=== PATIENT | female | born 1945 | race Caucasian/White ===

== ENCOUNTER 2016-07-30 06:09 | Inpatient (IN) | payer OTHER ==
[2016-07-20 13:58] LABS: EOSINOPHILS 0.9 %; EOSINOPHILS ABSOLUTE 0.09 10/3/uL (0.0-0.53); HEMATOCRIT 38.1 % (36.0-48.0); HEMOGLOBIN 12.3 g/dL (12.0-16.0); IMMATURE GRANULOCYTES 0.4 %; IMMATURE GRANULOCYTES ABSOLUTE 0.04 10/3/uL (0.0-0.11); LYMPHOCYTES 10.6 %; LYMPHOCYTES ABSOLUTE 1.03 10/3/uL (0.67-4.30); MANUAL DIFF NO %; MEAN CORPUS HGB CONC 32.3 g/dL (32.0-36.0); MEAN CORPUSCULAR HEMOGLOB 25.8 pg (26.0-34.0); MEAN CORPUSCULAR VOLUME 79.9 fL (80-100); MEAN PLATELET VOLUME 8.6 fL (9.2-13.0); MONOCYTES 4.2 %; MONOCYTES ABSOLUTE 0.41 10/3/uL (0.21-1.20); NEUTROPHILS 82.9 %; NEUTROPHILS ABSOLUTE 8.07 10/3/uL (2.02-8.40); PLATELET COUNT 384 10/3/uL (150-400); RBC DISTRIBUTION WIDTH 16.1 % (12.0-16.0); RED CELL COUNT 4.77 10/6/uL (4.0-5.6); WHITE BLOOD CELLS 9.7 10/3/uL (4.5-10.5)
[2016-07-20 14:11] LABS: % IRON SAT 10 % (20-50); ALBUMIN 3.4 G/DL (3.5-5.0); CALCIUM, SERUM 8.8 MG/DL (8.5-10.4); CHLORIDE, SERUM 107 MMOL/L (96-112); CO2 (CARBON DIOXIDE) 22 MMOL/L (24-34); CREATININE 2.26 MG/DL (0.55-1.02); GFR AFRICAN AMERICAN 24 ML/MIN (>=60); GFR NON AFRICAN AMERICAN 21 ML/MIN (>=60); IRON BINDING CAPACITY 419 MCG/DL (225-410); IRON, SERUM 41 MCG/DL (35-150); POTASSIUM, SERUM 4.9 MMOL/L (3.5-5.3); SGOT(AST) 17 U/L (5-40); SGPT(ALT) 38 U/L (5-65); SODIUM, SERUM 142 MMOL/L (135-148); TOTAL BILIRUBIN 0.2 MG/DL (0-1.2); TOTAL PROTEIN 7.2 G/DL (6.0-8.5)
[2016-07-20 14:12] LABS: A/G RATIO 0.9 (0.7-1.9); ALKALINE PHOSPHATASE 96 U/L (45-117); BUN (BLOOD UREA NITROGEN) 37 MG/DL (6-23); GLOBULIN 3.8 G/DL (2.5-4.1); GLUCOSE, SERUM 167 MG/DL (60-99)
[2016-07-20 14:34] LABS: ASCORBIC ACID (UR NOT ORDER) NEG (NEG); BILIRUBIN, URINE NEGATIVE (NEG); KETONE, URINE NEGATIVE (NEG); LEUKOCYTE ESTERASE(NOT OR SMALL (NEG); WBC (NOT ORDERED) (RFLEX) 105 (0-5)
--- NOTE | ~2016-07-30 | OP ---
[facility] [place] [address] [place]. [address] NAME: BASILIA BAÑUELOS : 45 STATUS : ADM IN PAT#: [id number] AGE: 71 ADM/REG DATE : 07/30/16 MR#: [id number] REPORT SERV DATE: 07/30/16 DICTATED BY: ROLANDO CARDOSO DATE: 07/30/16 REPORT STATUS : Draft TRANSCRIBED BY: MODL DATE: 07/30/16 DATE OF PROCEDURE: 07/30/2016 ATTENDING PHYSICIAN: Rolando Cardoso MD MANAGER PRODUCE: Chano Chatman. ANESTHESIOLOGIST: Ronnie Roberson M.D. PREOPERATIVE DIAGNOSES: 1. Unstable angina. 2. Three-vessel coronary artery disease. 3. Chronic kidney disease, stage 4. 4. Insulin-dependent diabetes mellitus. 5. Hypertension. 6. Hyperlipidemia. POSTOPERATIVE DIAGNOSES: 1. Unstable angina. 2. Three-vessel coronary artery disease. 3. Chronic kidney disease, stage 4. 4. Insulin-dependent diabetes mellitus. 5. Hypertension. 6. Hyperlipidemia. PROCEDURE PERFORMED: 1. Median sternotomy. 2. Extracorporeal circulation. 3. Coronary artery bypass grafting x3, left internal mammary artery, left anterior descending, reverse greater saphenous vein graft to posterior descending artery, reverse greater saphenous vein graft to obtuse marginal #2. 4. PORSHA. 5. Endoscopic vein harvest of left leg. 6. Vas-Cath placement in the left subclavian vein. COMPLICATIONS: None. ESTIMATED BLOOD LOSS: 500 mL. TUBES AND DRAINS: A 24-Gibraltarian Jeevan in the left pleural space and 32-Gibraltarian straight mediastinal chest tube. Atrial and ventricular wires were placed. DETAILS OF CARDIOPULMONARY BYPASS: Cross-clamp 64 minutes, total cardiopulmonary bypass time 94 minutes. POSTOPERATIVE CONDITION: To CV ICU, weaned on 5 mcg/kilo/minute of dobutamine. [facility] [place] [address] [place]. [address] NAME: BASILIA BAÑUELOS : 45 STATUS : ADM IN PAT#: [id number] AGE: 71 ADM/REG DATE : 07/30/16 MR#: [id number] REPORT SERV DATE: 07/30/16 DICTATED BY: ROLANDO CARDOSO DATE: 07/30/16 REPORT STATUS : Draft TRANSCRIBED BY: MODL DATE: 07/30/16 INTRAOPERATIVE FINDINGS: Diffusely diseased coronary arteries. She is not a redo candidate, could not clear all the distal disease. The vein was 4-5 mm slightly thick. Excellent Doppler signals in all 3 grafts pre and post protamine. She had a short sternum, but however was able to have this reach a suitable place on the left anterior descending. Transesophageal echo showed EF of 40-45% with inferior wall hypokinesis. There was mild MR postoperatively. There was preserved wall motion with no change in her mild MR. DETAILS OF CARDIOPULMONARY BYPASS GRAFTIN. Grafts #1, left internal mammary artery, left anterior descending was 1.7 mm artery. 2. Reverse greater saphenous vein graft to obtuse marginal #2. This was 1.5 mm artery. 3. Reverse greater saphenous vein graft to posterior descending artery. Again, this was 1.5 mm artery. INDICATIONS FOR PROCEDURE: Ms. Bañuelos is a 71-year-old female with a history of long-standing poorly controlled diabetes mellitus, who was referred after being found to have three-vessel coronary artery disease on her heart catheterization. She was sent for evaluation by Nephrology and was also sent for better blood sugar management. Ultimately, she returns for an operation. Risks, benefits, and alternatives were discussed with the patient including but not limited to, bleeding, infection, stroke, , heart attack, need for future operations, all questions were answered. The STS score was calculated risk less than 5% and total morbidity mortality less than 30% were discussed with her. All questions were answered. DETAILS OF PROCEDURE: The patient was brought to the operating room, placed supine on the operating table. After satisfactory induction of general endotracheal anesthesia, she was prepped and draped in usual sterile fashion. Working simultaneously, endoscopic vein harvest was performed from the left leg and median sternotomy was performed on the chest. Skin and subcutaneous tissues were divided. Clavipectoral fascia was divided. Sternum was divided in the midline. Rultract retractor was placed. The internal mammary artery was harvested in a pedicle fashion from its takeoff under the subclavian vein to the bifurcation of the diaphragm. Systemic heparinization was achieved. After 3 minutes, the pedicle was clipped and divided of the bifurcation, it was infiltrated with papaverine. Hemostasis was obtained along the chest wall. A 24-Gibraltarian Jeevan was placed in the left pleural space and exteriorized. Rultract retractor was removed. Sternal retractor was placed. Thymic tissue was divided in the midline up to the innominate vein. Pericardium was opened in the midline along the diaphragms. Pericardial well was created. There were significant calcifications at the base of the innominate artery, so a more suitable slightly more proximal cannulation site was chosen. The aorta was cannulated through dual pursestring with a soft-flow cannula. The right atrial appendage was cannulated through a pursestring for a dual stage venous cannula. Antegrade root vent cardioplegia tack was placed. The conduit was brought up and reversed and prepared for bypass. The internal mammary artery was brought down through a wide V in the pericardium. Cardiopulmonary bypass was then initiated after documentation of an adequate ACT. The targets were inspected, were felt to be as mentioned in the findings. Cross-clamp was brought up. Heart was arrested with cold antegrade cardioplegia for a total of 800 mL, switching to intermittent aliquots of cardioplegia every 15 minutes throughout the remainder of the every 20 minutes throughout the remainder of the Record Of Operation [address] [address] NAME: BASILIA BAÑUELOS : 45 STATUS : ADM IN PAT#: [id number] AGE: 71 ADM/REG DATE : 07/30/16 MR#: [id number] REPORT SERV DATE: 07/30/16 DICTATED BY: ROLANDO CARDOSO DATE: 07/30/16 REPORT STATUS : Draft TRANSCRIBED BY: FIDE DATE: 07/30/16 cross clamp. The grafts were then performed as mentioned in the findings, the reverse greater saphenous vein graft to the PDA, reverse greater saphenous vein graft to the obtuse marginal #2. Both of these were done with 8-0 Surgipro. The heart was filled. The veins were cut to length and the proximal aortotomy was performed, enlarged with a 4.5 mm punch and a running continuous anastomosis was performed using 6-0 Prolene. Vein markers were placed. The internal mammary artery was brought down through a wide V in the pericardium and anastomosed to the suitable soft spot on the LAD. This was done using 8-0 Surgipro. There was excellent Doppler flow in the graft and then in the t[place] river artery proximal and distal to the anastomosis. The pedicle was attached to the heart in two places using 6-0 Prolene. The vein grafts were de-aired and the cross-clamp was removed. Atrial and ventricular pacing wires were placed. A 5 mcg/kilo/minute of dobutamine was started and the patient was able to be weaned from cardiopulmonary bypass without incident. The protamine was administered. Given the patient's chronic kidney disease, platelets and FFP were administered as well, as she appeared to be coagulopathic. The patient was decannulated. All cannulation sites were oversewn with 4-0 Prolene. A 32-Gibraltarian chest tube was brought in under the sternum, was not able to close the pericardium over the heart. Hemostasis was obtained. The sternum was then reapproximated with stainless steel sternal wires, some of these were double wires. Clavipectoral fascia was reapproximated using running #1 StrataFix. Subcutaneous tissues closed using running #1 StrataFix. Skin and soft tissues were closed using 2-0 Quill. Prevena dressing was placed. Attention was then turned to the left subclavian area without removing the drapes. The left subclavian vein was accessed using a 14-gauge needle. There was good return of venous flow. Guidewire was placed through this. Needle was removed and the tract was dilated sequentially and then a 14- Gibraltarian Vas-Cath was placed through this. Vas-Cath was anchored into position, was flushed and then dressed. The patient was transferred to the CV ICU in critical and stable condition. WMC/MODL Rolando Cardoso MD / [id number] CC: MD Damien Mark M.D. Steven Stubblefield, M.D., F.A.C.C.
--- NOTE | ~2016-07-30 | OP ---
Record Of Operation [facility] Sarah Cueto [place] [address]. [address] NAME: BASILIA BAÑUELOS : 45 STATUS : ADM IN PAT#: [id number] AGE: 71 ADM/REG DATE : 07/30/16 MR#: [id number] REPORT SERV DATE: 08/14/16 DICTATED BY: DAMEON MARTINEZ DATE: 08/13/16 REPORT STATUS : Draft TRANSCRIBED BY: FIDE DATE: 08/13/16 DATE OF PROCEDURE: NO DICTATION DRAFTER CONSTRUCTION/FIDE Dameon Martinez M.D. / [id number]
--- NOTE | ~2016-07-30 | OP ---
Record Of Operation [facility] [address] [place]. [address] NAME: BASILIA BAÑUELOS : 45 STATUS : ADM IN [facility]#: [id number] AGE: 71 ADM/REG DATE : 07/30/16 MR#: [id number] REPORT SERV DATE: 08/14/16 DICTATED BY: DAMEON MARTINEZ DATE: 08/13/16 REPORT STATUS : Draft TRANSCRIBED BY: FIDE DATE: 08/13/16 DATE OF PROCEDURE: 08/13/2016 PREOPERATIVE DIAGNOSIS: Acute kidney injury. POSTOPERATIVE DIAGNOSIS: Acute kidney injury. PROCEDURE: Right IJ PermCath. SURGEON: Dameon Martinez M.D. PRIVATE BRANCH EXCHANGE OPERATOR: None. ANESTHESIA: MAC plus local. INDICATIONS: The patient is a 71-year-old female, who had coronary bypass performed by Dr. Singletary. She developed acute kidney injury and has been dialyzed via a left subclavian vein and Vas-Cath. She needs intermediate term dialysis access. She was consented for PermCath placement. DESCRIPTION OF PROCEDURE: After informed consent was obtained, the patient was taken to the operating room and placed in the supine position on the operating table. Monitored anesthesia was administered. The patient's right neck and chest were prepped and draped in the usual sterile fashion. Ultrasound-guided access was obtained of the right internal jugular vein. The ultrasound image was documented on the chart. I passed a wire centrally. I anesthetized the right chest and tunneled a 19-cm curved HemoSplit catheter from the right chest to the right neck after making small skin incisions. I inserted a peel-away sheath over the aforementioned wire using fluoroscopic guidance. I inserted the catheter into the peel-away sheath under fluoroscopy and confirmed that the catheter was not kinked. It aspirated and flushed well. It was packed with heparin. The right neck wound was closed. The catheter was sutured in place and a sterile dressing was applied. The patient tolerated the procedure well without any intraprocedural complications noted. VEHICLE WINDOW TINTER/FIDE Dameon Martinez M.D. / [id number] CC: MD Damien Mark M.D.
--- NOTE | ~2016-07-30 | CN ---
Consultation Report [facility] [address] [place]. [address] NAME: BASILIA BAÑUELOS : 45 STATUS : ADM IN PAT#: [id number] AGE: 71 ADM/REG DATE : 07/30/16 MR#: [id number] REPORT SERV DATE: 08/16/16 DICTATED BY: MIHAI CORDERO DATE: 08/15/16 REPORT STATUS : Draft TRANSCRIBED BY: MODL DATE: 08/15/16 INFECTIOUS DISEASE CONSULT DATE OF CONSULTATION: REASON FOR CONSULT: Positive hepatitis B core IgM. HISTORY OF PRESENT ILLNESS: 71-year-old lady with history of diabetes, hypertension, chronic kidney disease, coronary artery disease, peripheral vascular disease, who was admitted for coronary artery bypass. This was done on 07/30/2016. Postoperatively, she developed renal insufficiency and required dialysis. As part of the screening testing for this, she had acute hepatitis panel. The Hepatitis B core IgM came positive. Hepatitis B surface antigen was negative as well as hepatitis A IgM and hepatitis C antibodies, and HIV antibodies. Further hepatitis B surface antibodies came less than three, which is the limit of detection. Transaminases have not been elevated. Alkaline phosphatase is slightly elevated. On discussion with the patient, she tells me that about 50 years ago, she took care of an infant or toddler who had hepatitis and she developed jaundice. Her doctor told her she has hepatitis B, but I do not know how this diagnosis was made. She was treated with some shots and she was not hospitalized. When asked if the shots are gamma globulins, she said yes. She did not report any IV drug use and she does not think she acquired this through sexual contact. I explained her that hepatitis A is transmitted through a fecal/oral route and that hepatitis B is transmitted through blood or body fluids. She was sick for several weeks or months and eventually recovered. She states that about 20 years ago, she had some liver problems and was told she has liver damage. She is unaware of any further testing for hepatitis or any other further liver problems. She thinks she never received a hepatitis vaccine. She has been a for 20 years and she has not remarried, she never used IV drugs. After this surgery, she has been hospitalized now for a long time. She still has surgical site soreness. She is on dialysis now and the right chest PermCath was just placed. PAST MEDICAL HISTORY: As I mentioned above, plus spinal stenosis, hysterectomy, GERD, left leg stent. SOCIAL HISTORY: She is disabled, . FAMILY HISTORY: Diabetes and cancer. ALLERGIES: SHE MENTIONS CODEINE AND FENTANYL, BUT IT SOUNDS LIKE THEY CAUSE NAUSEA AND VOMITING. Consultation Report [place] [id number] [place]. [address] NAME: BASILIA BAÑUELOS : 45 STATUS : ADM IN PAT#: [id number] AGE: 71 ADM/REG DATE : 07/30/16 MR#: [id number] REPORT SERV DATE: 08/16/16 DICTATED BY: MIHAI CORDERO DATE: 08/15/16 REPORT STATUS : Draft TRANSCRIBED BY: FIDE DATE: 08/15/16 MEDICATIONS ON ADMISSION: Amlodipine, aspirin, metoprolol, insulin, gabapentin, glimepiride, Zantac. PHYSICAL EXAMINATION: GENERAL: She is alert. Surgical site is closed. LUNGS: With some fine crackles in the bases. HEART: Distant sounds. Regular rhythm. ABDOMEN: Obese, soft. No obvious hepatomegaly. Leg surgical site is healed. LAB WORK: WBC 10, hemoglobin 8.5, alkaline phosphatase 129. Bilirubin and transaminases within normal limits. ASSESSMENT AND PLAN: 1. Positive hepatitis B core IgM with negative hepatitis B surface antigen. 2. The patient is now on dialysis. 3. Recent CABG. 4. History of diabetes, hypertension, peripheral vascular disease. She reports "jaundice" 50 years ago. The mode of transmission is more suggestive of hepatitis A than hepatitis B. She does not describe risk factors for transmission of hepatitis B. Isolated positive core IgM could be a false positive or could be reflection of chronic hepatitis B. Based on the history and normal liver enzymes, lack of acute symptoms, recent or acute hepatitis B seems unlikely. She did receive platelets transfusion at surgery time. I still think the risk is very low for acute infection. We discussed with Dr. Deleon. I requested hepatitis B viral load by PCR quantitative. Also, I am going to request hepatitis A IgG to look for prior hepatitis A exposure although that could possibly wane in time. If she does have a positive hepatitis B viral load, she will likely need treatment for hepatitis B as well as screening for hepatocarcinoma and a hepatitis A vaccine. I discussed with the patient and I offered the opportunity to ask questions. STEPHY/FIDE Mihai Cordero M.D. / [id number] CC: MD Damien Mark M.D.
--- NOTE | ~2016-07-30 | DS ---
Discharge Summary [facility] [address] [place]. [address] NAME: BASILIA BAÑUELOS : 45 STATUS : DIS IN PAT#: [id number] AGE: 71 ADM/REG DATE : 07/30/16 MR#: [id number] REPORT SERV DATE: 08/28/16 DICTATED BY: ROLANDO CARDOSO DATE: 08/27/16 REPORT STATUS : Draft TRANSCRIBED BY: FIDE DATE: 08/27/16 Data Collection from hospitalization DISCHARGE DIAGNOSES: 1. Unstable angina. 2. Three-vessel coronary artery disease. 3. Stage IV chronic kidney disease. 4. Insulin-dependent diabetes mellitus. 5. Hypertension. 6. Hyperlipidemia. 7. Gastroesophageal reflux disease. 8. Past history of tobacco use. 9. Chronic obstructive pulmonary disease. CONSULTATIONS: 1. Partha Grayson M.D. 2. Larry Leblanc NP. 3. Wu Meeks MD. 4. Angie Johnson M.D. 5. Mihai Bruce M.D. 6. Dameon Martinez M.D. PROCEDURES PERFORMED: 1. Median sternotomy; extracorporeal circulation; coronary artery bypass grafting x3 with left internal mammary artery to the left anterior descending artery, reverse greater saphenous vein graft to the posterior descending artery, reverse greater saphenous vein graft to the obtuse marginal #2; transesophageal echocardiogram; endoscopic vein harvest from the left leg; Vas-Cath placement in the left subclavian vein on 07/30/2016. 2. Right IJ PermCath on 08/13/2016. 3. Color flow study of the kidneys on 07/31/2016. MEDICATIONS: Norvasc 10 mg twice a day - hold for systolic blood pressure less than 125, aspirin 81 mg daily, Coreg 12.5 mg every 12 hours as instructed, Neurontin 100 mg at 9:00 a.m. and 1:00 p.m. and 200 mg at bedtime, NovoLog injection insulin as instructed, Protonix 40 mg before breakfast, Apresoline 50 mg every eight hours, Proventil 3 mL via inhaler every four hours while awake while at the senior living facility, Tylenol 325 mg every four hours as needed, Zantac 150 mg at bedtime and as needed, Clopidogrel 75 mg daily, and Ultram 50-100 mg every six hours as needed. CONDITION AT DISCHARGE: Stable. DISPOSITION: The patient was discharged to [facility] on an 1800-calorie diabetic diet with activities as instructed. She would follow up with Dr. Garcia on 09/15/2016. She would follow up with me on 09/08/2016. HOSPITAL COURSE: This is a 71-year-old female, who has a history of longstanding poorly controlled diabetes mellitus, who had been referred after being found to have three-vessel Discharge Summary [address] [address] NAME: BASILIA BAÑUELOS : 45 STATUS : DIS IN PAT#: [id number] AGE: 71 ADM/REG DATE : 07/30/16 MR#: [id number] REPORT SERV DATE: 08/28/16 DICTATED BY: ROLANDO CARDOSO DATE: 08/27/16 REPORT STATUS : Draft TRANSCRIBED BY: FIDE DATE: 08/27/16 coronary artery disease on her cardiac catheterization. Treatment options were discussed and it was elected to proceed with surgical intervention. She was admitted to the hospital at this time for further evaluation and treatment. Upon admission, she was taken to the operating room where she underwent the above-mentioned procedure. She tolerated this well, and there were no complications. Postoperatively, she was seen by Dr. Partha Grayson regarding stage IV chronic kidney disease. Intraoperatively, there had been some transient hypotension. Her baseline creatinine is 2.26. She had urine output maintaining with IV Lasix. Intraoperatively, her creatinine rivera to 2.48. A left subclavian vein Vas-Cath was placed during the surgery due to her advanced underlying chronic disease. She was felt to have acute kidney injury superimposed on chronic kidney disease stage IV, likely ischemic acute tubular necrosis with transient hypotension. We would also consider KURT inhibitor effect as home medications include lisinopril. Renal Doppler study was requested. The following day, a color flow study of the kidneys was performed. She had been up sitting in a chair. Blood pressure was controlled. Chest tubes were removed. Insulin drip was being weaned. Levemir was going to be added. Cardene was being weaned as well. Norvasc was restarted. She was seen by Dr. Wu Meeks regarding postoperative hypoxia. She was being diuresed. A Vas-Cath was in place in case dialysis was needed. Otherwise, it sounds like her surgery had been uncomplicated. She had been extubated and had done well overnight. However, she did remain on Vapotherm and did have some shortness of breath. She was currently using incentive spirometry as well as other forms of pulmonary toilet. Chest x-ray showed some perihilar edema with left lower lobe atelectasis. White count was 13,000. Pulmonary toilet was going to be continued, and she would remain on Vapotherm for now. The patient was encouraged to ambulate as much as possible. Diuresis was continued. She was also seen by Larry Leblanc for routine cardiology consult. The patient's vital signs were stable except for requiring high flow oxygen via Vapotherm. She was doing quite well. She had been weaned off her cardiac drip. Routine postop orders would be continued. She was in a sinus rhythm on the monitor. She has a history of diabetic neuropathy. The insulin drip was going to be discontinued and we would continue her on Levemir, although at home she takes the long-acting insulin twice a day, taking into consideration her abnormal kidney function, chronic kidney disease, her insulin requirement should be less. She was going to be kept on 20 units of Levemir every morning and we would continue her on NovoLog sliding scale level 2. Hemoglobin A1c on 07/20/2016 was 9. Ejection fraction was 40%-45%. She did have some sternal soreness. Routine postop orders continued. She still felt weak. The next day, she still had increased O2 requirement. Norvasc was increased. Sliding scale insulin and Levemir were continued. She was not eating much. Urine output decreased. Her creatinine had risen to 3.92. Norvasc was increased. Her heart rate was in the 60s. We encouraged her to increase her activity. She did have decreased breath sounds in her lung bases. She did have a flat affect. It was felt that she likely had situational depression. She did have good urine output from diuresis. Bradycardia improved. Creatinine level was stable. We encouraged her to mobilize. We were hopeful that dialysis could be avoided. She seemed to be breathing better. She was evaluated by Physical Therapy. Her postop hypoxic respiratory failure continued to slowly improve. On 08/05/2016, she did have some abdominal cramping. Her lungs were clear. She had 1+ pedal edema. O2 was being weaned as tolerated. Laxatives were going to be given for constipation. FiO2 was slowly being weaned. She appeared to be Discharge Summary [place] [id number] [facility] [place]. [address] NAME: BASILIA BAÑUELOS : 45 STATUS : DIS IN PAT#: [id number] AGE: 71 ADM/REG DATE : 07/30/16 MR#: [id number] REPORT SERV DATE: 08/28/16 DICTATED BY: ROLANDO CARDOSO DATE: 08/27/16 REPORT STATUS : Draft TRANSCRIBED BY: FIDE DATE: 08/27/16 improving clinically. We encouraged her to be up sitting in a chair at least three times per day. The next day, she did have some nausea. She said she was breathing better. Creatinine level had decreased to 3.73. She was still on Vapotherm. O2 saturations were beginning to improve. She still had some occasional nausea, but no emesis. The Miguel catheter was going to be removed. Bumex was stopped. Oral Demadex was being given. On 08/08/2016, her Coreg was increased. Her blood pressure was uncontrolled. Creatinine level was now 3.60. She had a few rhonchi in her lungs. On 08/09/2016, her hydralazine was increased. Blood pressure was 180/80. We encouraged her to increase her activity. Coreg was increased. On 08/10/2016, she was refusing to participate with Physical Therapy and cardiac rehabilitation. She had not ambulated outside of her room. Creatinine level was stable at this time. Diabetes was well controlled. She said that she was trying to walk some, but was limited secondary to back and leg pain. Coreg was increased. Her Vas-Cath remained in place. On 08/12/2016, her affect remained flat. She had diminished breath sounds in her bases. Creatinine was 3.55. The patient's diabetes was controlled here, but she has poor control at home. She had mild shortness of breath. She did complain of fatigue. She underwent diabetes education. The patient was seen by Dr. Dameon Martinez. The patient had developed acute kidney injury and had been dialyzed via a left subclavian vein and Vas-Cath. It was felt that she would need intermediate term dialysis access. She consented for PermCath placement. She was taken to the operating room by Dr. Martinez where she underwent right IJ PermCath placement. Levemir was adjusted. NovoLog was continued. Her hemoglobin A1c is 9%. Shortness of breath did improve some. Hemodialysis therapy was performed. On 08/14/2016, she has had no issues overnight. Hemodialysis therapy was going to be performed again that day. She said she had been walking in the halls. Her appetite was improving. Hepatitis B study was negative. The patient has had hepatitis B infection 40 years ago. She was seen by Dr. Mihai Bruce. The patient's hepatitis B surface antigen was negative as well as hepatitis A IgM, hepatitis C antibody and HIV antibody. Hepatitis B core IgM was positive. Transaminases had not been elevated. Alkaline phosphatase was slightly elevated. The patient said that about 50 years ago she took care of an infant or toddler who had hepatitis and she developed jaundice. Her doctor told her she had hepatitis B, but she does not know how this diagnosis was made. She had been treated with some shots, but was not hospitalized. When asked if those shots were gamma globulins, she said yes. She did not report any IV drug use and did not think she acquired this through sexual contact. It was explained to her that hepatitis A is transmitted through fecal/oral route and hepatitis B is transmitted through blood or body fluids. She had been sick for several weeks or months and eventually recovered. She said that about 20 years ago she had some liver problems and was told she had liver damage. She was unaware of any further testing for hepatitis or any other further liver problems. She thinks that she never received a hepatitis vaccine. She still had some surgical site soreness. His assessment included positive hepatitis B core IgM with negative hepatitis B surface antigen. She reports having "jaundice" more than 50 years ago. The mode of transmission is more suggestive of hepatitis A than hepatitis B. She did not describe any risk factors for transmission of hepatitis B. Isolated positive core IgM could be a false positive or could be a reflection of chronic hepatitis B. Based on the history and normal liver enzymes, lack of acute symptoms, recent or acute hepatitis B seemed unlikely. She did receive a platelet transfusion at surgery time and it was felt that the risk was very low for acute infection. Hepatitis B viral load by PCR quantitative Discharge Summary [address] [address] NAME: BASILIA BAÑUELOS : 45 STATUS : DIS IN PAT#: [id number] AGE: 71 ADM/REG DATE : 07/30/16 MR#: [id number] REPORT SERV DATE: 08/28/16 DICTATED BY: ROLANDO CARDOSO DATE: 08/27/16 REPORT STATUS : Draft TRANSCRIBED BY: FIDE DATE: 08/27/16 was requested. He was also going to request hepatitis A IgG to look for prior hepatitis A exposure, although that could possibly wane in time. If she does have a positive hepatitis B viral load, she would likely need treatment for hepatitis B as well as screening for hepatocarcinoma and a hepatitis A vaccine. Her low back pain was a little better at this time. She was walking some in her room. She had left dizziness with standing. Levemir and NovoLog were continued as well as gabapentin. Levemir was increased. On 08/16/2016, she was resting comfortably. She was stable from a surgical standpoint. Her wounds looked okay. Hemodialysis therapy continued. Discharge planning continued. She had been walking with Physical Therapy and cardiac rehab. Blood sugars and blood pressures were controlled. Hemodialysis therapy was performed. On 08/18/2016, she was alert and cooperative. She had good pain control. Her lungs were clear. She had no edema. She was up sitting in a chair. Her chest was still sore. Discharge instructions were given. She was scheduled to undergo outpatient hemodialysis. Due to her improved and stable condition, she was discharged to [facility] with the above-stated instructions. Information collected by: Salma Fowler I submit the above information as my discharge summary. TG/FIDE Rolando Cardoso MD / [id number] CC: MD Damien Mark M.D. [facility] Salma Poon M.D. [facility], NP Sachin V Phade, M.D.
--- NOTE | ~2016-07-30 | CN ---
Consultation Report [address] [address] NAME: BASILIA BAÑUELOS : 45 STATUS : ADM IN PAT#: [id number] AGE: 71 ADM/REG DATE : 07/30/16 MR#: [id number] REPORT SERV DATE: 08/02/16 DICTATED BY: FELISHA MEEKS DATE: 07/31/16 REPORT STATUS : Draft TRANSCRIBED BY: MODL DATE: 07/31/16 CONSULT DATE OF CONSULTATION: REASON FOR CONSULTATION: Postoperative hypoxia. HISTORY OF PRESENT ILLNESS: The patient is a 71-year-old female with past medical history of coronary artery disease, chronic kidney disease and type 2 diabetes, who is now postop day #1 from a coronary artery bypass grafting x3 on 07/30/2016. Intraoperatively, she has had some transient hypotension with some acute on chronic renal failure. Renal is seeing the patient and is following along. They are attempting to diurese her for now with diuretics, but do have a Vas-Cath placed in case we need dialysis. Otherwise, it sounds like the surgery was uncomplicated. She was extubated last evening by anesthesia, has done well overnight. She does, however, remain on Vapotherm and have some shortness of breath. She is without a fever. She is not coughing up anything. She is currently doing incentive spirometry as well as other forms of pulmonary toilet. We are consulted to assist in her postop hypoxia. PAST MEDICAL HISTORY: 1. Chronic kidney disease. 2. Coronary artery disease. 3. Type 2 diabetes. 4. Peripheral vascular disease. 5. Hypertension. 6. Gastroesophageal reflux disease. 7. Diabetic neuropathy. 8. History of hysterectomy. ALLERGIES: NO KNOWN DRUG ALLERGIES. HOME MEDICATIONS: See medication reconciliation form. SOCIAL HISTORY: Remote history of tobacco use, but none in the last 15 years. No alcohol or IV drug abuse. FAMILY HISTORY: Negative for coronary artery disease. REVIEW OF SYSTEMS: A 10-point review of systems is negative except as mentioned in HPI. PHYSICAL EXAMINATION: VITAL SIGNS: Temperature 97.0, heart rate 62, respiratory rate 18, blood pressure 144/70. GENERAL: In no acute distress. Consultation Report [address] [address] NAME: BASILIA BAÑUELOS : 45 STATUS : ADM IN PAT#: [id number] AGE: 71 ADM/REG DATE : 07/30/16 MR#: [id number] REPORT SERV DATE: 08/02/16 DICTATED BY: FELISHA MEEKS DATE: 07/31/16 REPORT STATUS : Draft TRANSCRIBED BY: FIDE DATE: 07/31/16 HEENT: Pupils equal, round, and reactive to light. Extraocular movements intact. Oropharynx clear. NECK: Supple. Nontender. No lymphadenopathy. No thyromegaly. No jugular venous distention. LUNGS: Coarse breath sounds bilaterally. CARDIOVASCULAR: Regular rate and rhythm. No murmurs, rubs, or gallops. ABDOMEN: Soft, nontender, nondistended. Positive bowel sounds. No hepatosplenomegaly. EXTREMITIES: No cyanosis, clubbing, or edema. NEUROLOGIC: Alert and oriented x3. Cranial nerves intact. PSYCH: Mood appropriate. LABS AND IMAGING: Chest x-ray shows some perihilar edema with left lower lobe atelectasis. CBC remarkable for white count 13,000. Metabolic profile remarkable for a creatinine of 2.7, BUN of 42, albumin 3.1. ASSESSMENT AND PLAN: The patient is a 71-year-old female with past medical history of coronary artery disease, chronic kidney disease and type 2 diabetes. She is now postop day #1 from coronary artery bypass grafting with postoperative hypoxia, most likely multifactorial in etiology including pulmonary edema from volume overload with acute-on- chronic renal failure and postoperative atelectasis. The patient remains on Vapotherm for now. We will continue to wean this down as tolerated. We will continue pulmonary toilet as you are already with EzPAP and incentive spirometry. We will also ambulate the patient as much as possible and get her up out of bed. We recommend continuing diuresis as you are. We will continue to follow along the patient with you. Please call with questions. I appreciate the consult. HELEN/FIDE Felisha Meeks MD / [id number] CC: MD Damien Mark M.D.
--- NOTE | ~2016-07-30 | CN ---
Consultation Report [facility] [address] [place]. [address] NAME: BASILIA BAÑUELOS : 45 STATUS : ADM IN PAT#: [id number] AGE: 71 ADM/REG DATE : 07/30/16 MR#: [id number] REPORT SERV DATE: 07/30/16 DICTATED BY: GINA UNDERWOOD DATE: 07/30/16 REPORT STATUS : Draft TRANSCRIBED BY: MODL DATE: 07/30/16 NEPHROLOGY CONSULTATION DATE OF CONSULTATION: 07/30/2016 INDICATION FOR CONSULTATION: CKD stage 4. HISTORY OF PRESENT ILLNESS: Ms Bañuelos is a 71-year-old female who had previously undergone diagnostic cath by Dr. Garcia and found to have multivessel coronary artery disease. She was admitted for coronary artery bypass and underwent a three-vessel CABG on 07/30/2016. Intraoperatively, there was some transient hypotension. Her baseline creatinine was 2.26 prior to surgery. She has been seen by Dr. Ndiaye in the past. She has had urine output maintaining with IV Lasix. Intraoperatively, her creatinine has risen to 2.48. There was placement of a left subclavian vein Vas-Cath during surgery due to her advanced underlying chronic disease. PAST MEDICAL HISTORY: 1. CKD stage 4. Creatinine at baseline 2.26. 2. Coronary artery disease, remote PCI x2 and recent CABG x3. 3. Type 2 diabetes mellitus. 4. Peripheral vascular disease with lower extremity stent by Dr. Yu. 5. Hypertension. 6. Remote [place]. 7. Low back pain with spinal stenosis. 8. Gastroesophageal reflux disease. 9. Diabetic neuropathy. 10.Remote hysterectomy. SOCIAL HISTORY: The patient has supportive daughter and remote smoker with no tobacco use in 15 years. She is disabled. Otherwise, no information as the patient is sedated on the vent. REVIEW OF SYSTEMS: Unable to obtain. The patient is sedated on the vent. FAMILY HISTORY: Unable to obtain. The patient is sedated on the vent. PHYSICAL EXAMINATION: GENERAL: Elderly white female, on vent, sedated. HEENT: Eyes, no scleral icterus. Pupils reactive symmetrically. Nares patent. No lesions. Mouth with ET and OG tube in place. NECK: No thyromegaly, masses, bruits. CHEST/LUNGS: Lateral crackles. No wheezes. CARDIAC: Regular rate and rhythm. No murmur, gallop, or rub. ABDOMEN: Decreased bowel Consultation Report [address] [place]. [address] NAME: SARMADSHAYYBASILIAKAIDEN LIN : 45 STATUS : ADM IN PAT#: [id number] AGE: 71 ADM/REG DATE : 07/30/16 MR#: [id number] REPORT SERV DATE: 07/30/16 DICTATED BY: GINA UNDERWOOD DATE: 07/30/16 REPORT STATUS : Draft TRANSCRIBED BY: MODL DATE: 07/30/16 sounds. Supple. No tenderness. No hepatosplenomegaly. BREASTS, PELVIC, RECTAL: Exam not performed. EXTREMITIES: 0 to trace edema. No calf tenderness. DERMIS: No rash. No skin lesions. NEUROLOGIC: Unable to evaluate due to sedation. MUSCULOSKELETAL: No deformity. IMPRESSION: 1. Acute kidney injury, superimposed on chronic kidney disease stage 4, likely ischemic acute tubular necrosis with noted transient hypotension. Also, consider KURT inhibitor effect as home medications include lisinopril. 2. Coronary artery disease, status post coronary artery bypass graft x3 with remote percutaneous coronary intervention. 3. Type 2 diabetes mellitus. 4. Peripheral vascular disease with prior left lower extremity stent. 5. Hypertension. 6. Remote myocardial infarction. 7. Spinal stenosis with low back pain. 8. Gastroesophageal reflux disease. 9. Diabetic neuropathy. 10.Remote hysterectomy. PLAN: 1. Labs. 2. Renal Doppler. ADDENDUM: Allergies: Statins causing lower extremity pain and weakness. Fentanyl causing nausea and vomiting. Codeine causing nausea and vomiting. Home medications: Tylenol, Norvasc, aspirin, Neurontin, Amaryl, Levemir insulin, Lopressor, and Zantac. CG/MODL Gina Underwood M.D. / [id number] CC: Rolando Singletary MD Consultation Report [address] [place]. [address] NAME: SHAYY BAÑUELOSKAIDEN LIN : 45 STATUS : ADM IN PAT#: [id number] AGE: 71 ADM/REG DATE : 07/30/16 MR#: [id number] REPORT SERV DATE: 07/30/16 DICTATED BY: GINA UNDERWOOD DATE: 07/30/16 REPORT STATUS : Draft TRANSCRIBED BY: FIDE DATE: 07/30/16 Damien Wilson M.D.
--- NOTE | ~2016-07-30 | CN ---
Consultation Report [facility] [address] [place]. [address] NAME: BASILIA BAÑUELOS : 45 STATUS : ADM IN PAT#: [id number] AGE: 71 ADM/REG DATE : 07/30/16 MR#: [id number] REPORT SERV DATE: 07/31/16 DICTATED BY: BLADIMIR LEBLANC DATE: 07/31/16 REPORT STATUS : Draft TRANSCRIBED BY: MODL DATE: 07/31/16 CARDIOLOGY CONSULTATION DATE OF CONSULTATION: 07/31/2016 REASON FOR CONSULTATION: Routine cardiology Consult postop CABG. HISTORY OF PRESENT ILLNESS: The patient is a 71-year-old white female, who was seen in our office in 03/2016 for symptoms of progressive angina and subsequently underwent cardiac catheterization on 04/16/2016, which showed severe three-vessel coronary artery disease and moderate left ventricular dysfunction with an ejection fraction of 50%. She also has a history of severe diabetes mellitus type 2, which has been poorly controlled, as well as chronic kidney disease stage 4. She was referred to Dr. Singletary for bypass surgery that needed to get her blood sugar under better control for surgery. She is now stable postop day 1 CABG x3, with a MELTON to the LAD and reverse saphenous vein graft to the 2nd OM and PDA. Her intraoperative PORSHA showed an ejection fraction of 40% to 45%. Currently, the patient is awake and alert and extubated and sitting up in a chair. Her vital signs are stable except for requiring high-flow oxygen via Vapotherm. She is doing quite well. She has been weaned off her cardiac drips. PAST MEDICAL HISTORY: Significant for coronary artery disease, status post remote stenting; as well as uncontrolled diabetes mellitus type 2; peripheral vascular disease, status post previous lower extremity stenting; chronic kidney disease stage 4; and hypertension. SOCIAL HISTORY: The patient is a former smoker having quit about 10 years ago. FAMILY HISTORY: Positive for diabetes in her brother and cancer in both parents. No mention of coronary artery disease. REVIEW OF SYSTEMS: The patient has a history of worsening dyspnea on exertion as well as fatigue. No recent fever, chills, cough, wheeze, or sputum production. She did have some nausea last night postoperatively, but does not have any specific complaints this morning. PHYSICAL EXAMINATION: VITAL SIGNS: Blood pressure is 117/58, heart rate is 59 and sinus rhythm on the monitor, respirations are 18 and unlabored, O2 saturation is 93% on 35 L of high-flow Vapotherm at 80% FiO2. GENERAL APPEARANCE: The patient is a well-developed, well-nourished obese female, in no distress. HEENT: Unremarkable except for support lines in place. NECK: Shows no jugular venous distention with good carotid upstroke. CHEST: Remarkable for diminished breath sounds at the bases with some scattered crackles in the bases. CARDIOVASCULAR: PMI is lateral to the midclavicular line. S1 is normal. S2 is narrowly Consultation Report [place] [id number] [place]. [address] NAME: BASILIA BAÑUELOS : 45 STATUS : ADM IN [facility]#: [id number] AGE: 71 ADM/REG DATE : 07/30/16 MR#: [id number] REPORT SERV DATE: 07/31/16 DICTATED BY: BLADIMIR LEBLANC DATE: 07/31/16 REPORT STATUS : Draft TRANSCRIBED BY: MODMarion DATE: 07/31/16 split. No gallop is present. ABDOMEN: Soft and nontender with positive bowel sounds. EXTREMITIES: No cyanosis, clubbing, or edema. SKIN: Warm and dry with no pallor or icterus. NEURO/PSYCH: The patient is alert and oriented x3 with appropriate affect. LABORATORY AND DIAGNOSTIC DATA: CBC shows white count of 13.4, hemoglobin of 9.1, hematocrit of 27.7, and platelet count of 241. Chemistry shows a sodium of 147, potassium 4.5, BUN 42, and creatinine 2.75. Magnesium is 2.2. IMPRESSION: 1. Coronary artery disease, now postoperative day 1 after CABG x3. 2. Chronic kidney disease, stage 4, being followed by Renal. 3. Diabetes mellitus type 2. 4. Hypertension. PLAN: Continue routine postop orders as per Cardiothoracic Surgery. We will follow the patient with you. Thank you very much for this consultation. EBB/MODL Bladimir Leblanc NP / [id number] CC: MD Damien Mark, M.D. Armond Garcia M.D., F.A.C.C.
--- NOTE | ~2016-07-30 | CN ---
Consultation Report [facility] [address] [place]. [address] NAME: BASILIA BAÑUELOS : 45 STATUS : ADM IN PAT#: [id number] AGE: 71 ADM/REG DATE : 07/30/16 MR#: [id number] REPORT SERV DATE: 08/01/16 DICTATED BY: FORTUNATO JAVIER DATE: 08/01/16 REPORT STATUS : Draft TRANSCRIBED BY: MODL DATE: 08/01/16 DATE OF CONSULTATION: 08/01/2016 REASON FOR CONSULT: Management of postoperative diabetes. HISTORY: The patient is a 71-year-old female who is status post coronary artery bypass grafting on 07/30/[address] Singletary. She is still in Cardiovascular Intensive Care Unit. I am consulted for diabetes mellitus. The patient has past medical history of diabetes mellitus. She is now sleeping and cannot provide any additional information, but she is on insulin drip and her blood sugar currently in the controlled range, 116, 109. In the same time, she received 20 units of Levemir this morning. The patient's history was collected from medical records available here in the [facility]. The patient has history of diabetes; history of coronary artery disease; chronic kidney disease, stage IV, with baseline creatinine 2.26; peripheral vascular disease with lower extremity stents by Dr. Yu; hypertension; history of remote myocardial infarction; history of lower back pain with spinal stenosis; gastroesophageal reflux disease; history of stents x2 in the heart and coronary artery bypass grafting; and history of remote hysterectomy. She has history of diabetic neuropathy. SOCIAL HISTORY: The patient has a daughter who is supportive. She is remote smoker. No tobacco abuse for last 15 years. She is disabled. FAMILY HISTORY: There is positive family history of diabetes in her brother and cancer in both parents. REVIEW OF SYSTEMS: I am unable to do review of systems because the patient is not providing any information. HOME MEDICATIONS: Include Tylenol 325 mg q.4 h. p.r.n., Norvasc 20 mg a day, aspirin 81 mg a day, Neurontin 100 p.o. daily as needed, Amaryl 4 mg daily, Levemir 32 units twice a day, metoprolol 50 mg p.o. twice a day, Zantac 150 p.o. daily as needed. INTOLERANT TO MEDICATIONS: She is intolerant of statins, codeine, and fentanyl. PHYSICAL EXAMINATION: GENERAL: Well-nourished, well-developed female not in acute distress, resting quietly. VITAL SIGNS: Blood pressure 156/72, heart rate 61, respiratory rate 19, oxygen saturation 95 on 35% oxygen, temperature 97.4. HEENT: Head atraumatic, normocephalic. Conjunctivae clear. Pupils are equal, reactive to light and accommodation. Extraocular muscles are intact. NECK: Supple. Trachea is midline. No supraclavicular or cervical lymphadenopathy. LUNGS: Diminished breath sounds bilaterally. Decreased respiratory effort. CARDIOVASCULAR SYSTEM: Regular rate and rhythm. Point of maximal impulse not displaced. ABDOMEN: Soft, nontender, nondistended. Positive normoactive bowel sounds. EXTREMITIES: No clubbing, cyanosis. No edema. Consultation Report [place] [id number] [facility] [place]. [address] NAME: BASILIA BAÑUELOS : 45 STATUS : ADM IN [facility]#: [id number] AGE: 71 ADM/REG DATE : 07/30/16 MR#: [id number] REPORT SERV DATE: 08/01/16 DICTATED BY: FORTUNATO JAVIER DATE: 08/01/16 REPORT STATUS : Draft TRANSCRIBED BY: FIDE DATE: 08/01/16 PSYCHIATRIC: Normal mood. Flat affect. SKIN: Normal color and turgor. LABORATORY RESULTS: Blood sugar 135, 116, 109, currently on two to one units of insulin drip and she was given Levemir 20 units this morning. The rest of the pertinent laboratory results: Sodium 142, potassium 4.1, chloride 107, carbon dioxide 21, BUN 45, creatinine 3.26, blood sugar 112. White count 16.5, hemoglobin 8.6, hematocrit 26.4, and platelet count 276. ASSESSMENT AND PLAN: This is a 71-year-old female with past medical history of diabetes, status post coronary artery bypass grafting. She is still in surgical ICU. I am consulted by cardiovascular surgeon for postoperative diabetes management. The patient's blood sugar currently in the normal range and she only requires one to two units of insulin drip. So she received 20 units of Levemir this morning. We are going to discontinue insulin drip and continue her on Levemir 20 units a day. Although at home she takes the long-acting insulin twice a day taking into consideration her abnormal kidney function, chronic kidney disease, her insulin requirement should be less, so we will leave her on 20 units of Levemir every morning and we will continue her on NovoLog sliding scale level 2. Her hemoglobin A1c was checked on 07/20/2016, it was 9. We will monitor her blood sugar and I will follow up on this patient tomorrow. MG/MODL Fortunato Javier M.D. / [id number] CC: MD Damien Mark M.D.
[~2016-07-30 06:09] MED LIST: AMARYL4 PO; ASAB PO; LEVEMFLXPN SC; LOP50 PO; NEUR100 PO; NORV10 PO; T PO; ZANTAC 150 PO
[2016-07-30 13:40] LABS: BE (BASE EXCESS) -1.9 MEQ/L (0 +/- 2.5); CARBOXYHEMOGLOBIN 0.3 % (0-3); HCO3 (ACTUAL BICARBONATE) 23.8 MEQ/L (23-27); HEMOBLOGIN CONTENT 10.5 G/DL (12-16); INSTRUMENT SERIAL # 11843; METHEMOGLOBIN 0.5 % (0-3); MODE SIMV; O2 CONTENT 14.3 VOL% (18-24); OPERATOR ID 19104; PCO2 (CO2 TENSION) 45 MMHG (35-45); PO2 (O2 TENSION) 97 MMHG (79-93); SAMPLE Arterial; TIDAL VOLUME 700 ML; pH 7.35 (7.37-7.43)
[2016-07-30 15:19] LABS: BASOPHILS 0.3 %; BASOPHILS ABSOLUTE 0.05 10/3/uL (0.0-0.16); EOSINOPHILS 0.2 %; EOSINOPHILS ABSOLUTE 0.04 10/3/uL (0.0-0.53); IMMATURE GRANULOCYTES 0.8 %; IMMATURE GRANULOCYTES ABSOLUTE 0.15 10/3/uL (0.0-0.11); LYMPHOCYTES ABSOLUTE 0.57 10/3/uL (0.67-4.30); MEAN CORPUS HGB CONC 32.6 g/dL (32.0-36.0); MONOCYTES 4.1 %; MONOCYTES ABSOLUTE 0.77 10/3/uL (0.21-1.20); NEUTROPHILS 91.6 %; NEUTROPHILS ABSOLUTE 17.29 10/3/uL (2.02-8.40); RBC DISTRIBUTION WIDTH 16.2 % (12.0-16.0)
[2016-07-30 15:24] LABS: HEMATOCRIT 29.8 % (36.0-48.0); HEMOGLOBIN 9.7 g/dL (12.0-16.0); MANUAL DIFF NO %; PLATELET COUNT 266 10/3/uL (150-400); RED CELL COUNT 3.59 10/6/uL (4.0-5.6); WHITE BLOOD CELLS 18.9 10/3/uL (4.5-10.5)
[2016-07-30 15:34] LABS: BUN (BLOOD UREA NITROGEN) 39 MG/DL (6-23); CALCIUM, SERUM 9.3 MG/DL (8.5-10.4); CHLORIDE, SERUM 109 MMOL/L (96-112); CO2 (CARBON DIOXIDE) 23 MMOL/L (24-34); CREATININE 2.48 MG/DL (0.55-1.02); GFR AFRICAN AMERICAN 22 ML/MIN (>=60); GFR NON AFRICAN AMERICAN 19 ML/MIN (>=60); POTASSIUM, SERUM 4.9 MMOL/L (3.5-5.3); SODIUM, SERUM 145 MMOL/L (135-148)
[2016-07-30 15:36] LABS: FIBRINOGEN 430 MG/DL (230-462); INTERNATIONAL NORMAL RATI 1.3 UNITS (-); PARTIAL THROMBO TIME 32.7 SEC (22.5-37.2)
[2016-07-30 15:37] LABS: GLUCOSE, SERUM 118 MG/DL (60-99)
[2016-07-30 15:38] LABS: PROTIME (NOT ORD) 15.7 SEC (12.0-14.5)
[2016-07-30 17:59] LABS: CREATININE (RANDOM URINE) 33.8 MG/DL; CREATININE, URINE 33.8 MG/DL; MICROALBUMIN, RANDOM URINE 52.2 MG/DL
[2016-07-30 20:20] LABS: HEMATOCRIT 28.5 % (36.0-48.0); HEMOGLOBIN 9.2 g/dL (12.0-16.0)
[2016-07-30 20:29] LABS: POTASSIUM, SERUM 4.5 MMOL/L (3.5-5.3)
[2016-07-30 23:17] LABS: BE (BASE EXCESS) -1.9 MEQ/L (0 +/- 2.5); CARBOXYHEMOGLOBIN 0.3 % (0-3); DEVICE VAPOTHERM 30L; HCO3 (ACTUAL BICARBONATE) 23.6 MEQ/L (23-27); INSTRUMENT SERIAL # 11843; METHEMOGLOBIN 0.6 % (0-3); O2 CONTENT 13.4 VOL% (18-24); OPERATOR ID 32193; PCO2 (CO2 TENSION) 43 MMHG (35-45); PO2 (O2 TENSION) 84 MMHG (79-93); SAMPLE Arterial; pH 7.36 (7.37-7.43)
[2016-07-31 02:20] LABS: POTASSIUM, SERUM 4.4 MMOL/L (3.5-5.3)
[2016-07-31 02:29] LABS: HEMATOCRIT 28.5 % (36.0-48.0); HEMOGLOBIN 9.2 g/dL (12.0-16.0)
[2016-07-31 04:36] LABS: INTERNATIONAL NORMAL RATI 1.2 UNITS (-); PROTIME (NOT ORD) 15.4 SEC (12.0-14.5)
[2016-07-31 04:39] LABS: BASOPHILS 0.1 %; BASOPHILS ABSOLUTE 0.01 10/3/uL (0.0-0.16); EOSINOPHILS 0 %; HEMATOCRIT 27.7 % (36.0-48.0); HEMOGLOBIN 9.1 g/dL (12.0-16.0); IMMATURE GRANULOCYTES 0.1 %; IMMATURE GRANULOCYTES ABSOLUTE 0.02 10/3/uL (0.0-0.11); LYMPHOCYTES 2.7 %; LYMPHOCYTES ABSOLUTE 0.36 10/3/uL (0.67-4.30); MEAN CORPUS HGB CONC 32.9 g/dL (32.0-36.0); MEAN CORPUSCULAR HEMOGLOB 26.5 pg (26.0-34.0); MEAN CORPUSCULAR VOLUME 80.8 fL (80-100); MEAN PLATELET VOLUME 9.2 fL (9.2-13.0); MONOCYTES 5.8 %; MONOCYTES ABSOLUTE 0.78 10/3/uL (0.21-1.20); NEUTROPHILS 91.3 %; NEUTROPHILS ABSOLUTE 12.24 10/3/uL (2.02-8.40); PLATELET COUNT 241 10/3/uL (150-400); RED CELL COUNT 3.43 10/6/uL (4.0-5.6); WHITE BLOOD CELLS 13.4 10/3/uL (4.5-10.5)
[2016-07-31 04:40] LABS: MANUAL DIFF NO %
[2016-07-31 04:58] LABS: ALBUMIN 3.1 G/DL (3.5-5.0); BUN (BLOOD UREA NITROGEN) 42 MG/DL (6-23); CALCIUM, SERUM 9.1 MG/DL (8.5-10.4); CHLORIDE, SERUM 111 MMOL/L (96-112); CO2 (CARBON DIOXIDE) 21 MMOL/L (24-34); CREATININE 2.75 MG/DL (0.55-1.02); GFR AFRICAN AMERICAN 19 ML/MIN (>=60); GFR NON AFRICAN AMERICAN 17 ML/MIN (>=60); POTASSIUM, SERUM 4.5 MMOL/L (3.5-5.3); SODIUM, SERUM 147 MMOL/L (135-148)
[2016-07-31 04:59] LABS: GLUCOSE, SERUM 117 MG/DL (60-99)
[2016-07-31 05:24] LABS: T PROTEIN (ELECT)(NOT OR 5.7 G/DL (6.0-8.5)
[2016-07-31 11:24] LABS: ALB RELATIVE % 64.3 % (60.0-89.0); ALBUMIN (ELECTRO) 3.67 GM/DL (3.2-5.5); ALPHA 1 (ELECTRO) 0.25 GM/DL (0.1-0.4); ALPHA 1 RELAT % (NOT ORD) 4.3 % (1.0-4.0); ALPHA 2 (ELECTRO) 0.67 GM/DL (0.5-1.10); ALPHA 2 RELAT % 11.8 % (4.5-26.0); BETA GLOBULIN (SPE) 0.64 GM/DL (0.60-1.30); BETA RELATIVE % 11.2 % (9.0-22.0); GAMMA GLOBULIN (SPE) 0.48 G/DL (0.70-1.60); GAMMA RELAT % 8.4 % (6.0-22.0)
[2016-07-31 15:46] LABS: HEMATOCRIT 27.4 % (36.0-48.0); HEMOGLOBIN 9.3 g/dL (12.0-16.0)
[2016-07-31 15:54] LABS: POTASSIUM, SERUM 4.1 MMOL/L (3.5-5.3)
[2016-08-01 04:32] LABS: BASOPHILS 0.1 %; BASOPHILS ABSOLUTE 0.02 10/3/uL (0.0-0.16); EOSINOPHILS 0 %; HEMATOCRIT 26.4 % (36.0-48.0); HEMOGLOBIN 8.6 g/dL (12.0-16.0); IMMATURE GRANULOCYTES 0.3 %; IMMATURE GRANULOCYTES ABSOLUTE 0.05 10/3/uL (0.0-0.11); LYMPHOCYTES ABSOLUTE 0.49 10/3/uL (0.67-4.30); MEAN CORPUS HGB CONC 32.6 g/dL (32.0-36.0); MEAN CORPUSCULAR HEMOGLOB 26.8 pg (26.0-34.0); MEAN CORPUSCULAR VOLUME 82.2 fL (80-100); MEAN PLATELET VOLUME 9.5 fL (9.2-13.0); MONOCYTES 6.2 %; NEUTROPHILS 90.4 %; NEUTROPHILS ABSOLUTE 14.52 10/3/uL (2.02-8.40); PLATELET COUNT 276 10/3/uL (150-400); RBC DISTRIBUTION WIDTH 16.2 % (12.0-16.0); RED CELL COUNT 3.21 10/6/uL (4.0-5.6); WHITE BLOOD CELLS 16.1 10/3/uL (4.5-10.5)
[2016-08-01 04:33] LABS: MANUAL DIFF NO %
[2016-08-01 04:57] LABS: BUN (BLOOD UREA NITROGEN) 45 MG/DL (6-23); CALCIUM, SERUM 8.6 MG/DL (8.5-10.4); CHLORIDE, SERUM 107 MMOL/L (96-112); CO2 (CARBON DIOXIDE) 21 MMOL/L (24-34); CREATININE 3.26 MG/DL (0.55-1.02); FREE T4 0.99 NG/DL (0.76-1.46); GFR AFRICAN AMERICAN 16 ML/MIN (>=60); GFR NON AFRICAN AMERICAN 14 ML/MIN (>=60); GLUCOSE, SERUM 112 MG/DL (60-99); PHOSPHORUS, SERUM 7.8 MG/DL (2.5-4.5); POTASSIUM, SERUM 4.1 MMOL/L (3.5-5.3); SODIUM, SERUM 142 MMOL/L (135-148); ULTRASENSITIVE TSH 0.761 MCIU/ML (0.358-3.740)
[2016-08-01 15:36] LABS: ASCORBIC ACID (UR NOT ORDER) NEG (NEG); BILIRUBIN, URINE NEGATIVE (NEG); KETONE, URINE NEGATIVE (NEG); LEUKOCYTE ESTERASE(NOT OR TRACE (NEG); WBC (NOT ORDERED) (RFLEX) 6 (0-5)
[2016-08-02 03:49] LABS: BASOPHILS 0.1 %; BASOPHILS ABSOLUTE 0.01 10/3/uL (0.0-0.16); EOSINOPHILS 0 %; HEMATOCRIT 27.3 % (36.0-48.0); HEMOGLOBIN 8.8 g/dL (12.0-16.0); IMMATURE GRANULOCYTES 0.5 %; IMMATURE GRANULOCYTES ABSOLUTE 0.06 10/3/uL (0.0-0.11); LYMPHOCYTES 3.4 %; LYMPHOCYTES ABSOLUTE 0.45 10/3/uL (0.67-4.30); MEAN CORPUS HGB CONC 32.2 g/dL (32.0-36.0); MEAN CORPUSCULAR HEMOGLOB 26.5 pg (26.0-34.0); MEAN CORPUSCULAR VOLUME 82.2 fL (80-100); MONOCYTES 5.9 %; MONOCYTES ABSOLUTE 0.79 10/3/uL (0.21-1.20); NEUTROPHILS 90.1 %; PLATELET COUNT 228 10/3/uL (150-400); RBC DISTRIBUTION WIDTH 16.3 % (12.0-16.0); RED CELL COUNT 3.32 10/6/uL (4.0-5.6); WHITE BLOOD CELLS 13.3 10/3/uL (4.5-10.5)
[2016-08-02 03:50] LABS: MANUAL DIFF NO %
[2016-08-02 04:08] LABS: CHLORIDE, SERUM 102 MMOL/L (96-112); CO2 (CARBON DIOXIDE) 20 MMOL/L (24-34); CREATININE 3.51 MG/DL (0.55-1.02); GFR AFRICAN AMERICAN 14 ML/MIN (>=60); GFR NON AFRICAN AMERICAN 12 ML/MIN (>=60); PHOSPHORUS, SERUM 7.1 MG/DL (2.5-4.5); POTASSIUM, SERUM 3.9 MMOL/L (3.5-5.3); SODIUM, SERUM 139 MMOL/L (135-148)
[2016-08-02 04:19] LABS: BUN (BLOOD UREA NITROGEN) 54 MG/DL (6-23); GLUCOSE, SERUM 175 MG/DL (60-99)
[2016-08-02 15:26] LABS: ALLENS TEST Pos; BE (BASE EXCESS) -6.9 MEQ/L (0 +/- 2.5); CARBOXYHEMOGLOBIN 0.3 % (0-3); DEVICE vapotherm; HCO3 (ACTUAL BICARBONATE) 18.2 MEQ/L (23-27); HEMOBLOGIN CONTENT 9.6 G/DL (12-16); INSTRUMENT SERIAL # 11843; METHEMOGLOBIN 0.4 % (0-3); O2 CONTENT 12.4 VOL% (18-24); PCO2 (CO2 TENSION) 35 MMHG (35-45); PO2 (O2 TENSION) 70 MMHG (79-93); SAMPLE Arterial; pH 7.33 (7.37-7.43)
[2016-08-03 04:27] LABS: BASOPHILS 0.1 %; BASOPHILS ABSOLUTE 0.01 10/3/uL (0.0-0.16); EOSINOPHILS 0.2 %; EOSINOPHILS ABSOLUTE 0.02 10/3/uL (0.0-0.53); HEMATOCRIT 24.7 % (36.0-48.0); HEMOGLOBIN 8.1 g/dL (12.0-16.0); IMMATURE GRANULOCYTES 0.4 %; IMMATURE GRANULOCYTES ABSOLUTE 0.04 10/3/uL (0.0-0.11); LYMPHOCYTES 5.8 %; LYMPHOCYTES ABSOLUTE 0.56 10/3/uL (0.67-4.30); MEAN CORPUS HGB CONC 32.8 g/dL (32.0-36.0); MEAN CORPUSCULAR HEMOGLOB 26.6 pg (26.0-34.0); MEAN PLATELET VOLUME 9.4 fL (9.2-13.0); MONOCYTES 7.8 %; MONOCYTES ABSOLUTE 0.75 10/3/uL (0.21-1.20); NEUTROPHILS 85.7 %; NEUTROPHILS ABSOLUTE 8.23 10/3/uL (2.02-8.40); PLATELET COUNT 228 10/3/uL (150-400); RBC DISTRIBUTION WIDTH 16.2 % (12.0-16.0); RED CELL COUNT 3.05 10/6/uL (4.0-5.6); WHITE BLOOD CELLS 9.6 10/3/uL (4.5-10.5)
[2016-08-03 04:30] LABS: MANUAL DIFF NO %
[2016-08-03 04:36] LABS: ALBUMIN 2.5 G/DL (3.5-5.0); BUN (BLOOD UREA NITROGEN) 61 MG/DL (6-23); CALCIUM, SERUM 7.8 MG/DL (8.5-10.4); CHLORIDE, SERUM 102 MMOL/L (96-112); CO2 (CARBON DIOXIDE) 19 MMOL/L (24-34); CREATININE 3.92 MG/DL (0.55-1.02); GFR AFRICAN AMERICAN 13 ML/MIN (>=60); GFR NON AFRICAN AMERICAN 11 ML/MIN (>=60); GLUCOSE, SERUM 203 MG/DL (60-99); PHOSPHORUS, SERUM 5.6 MG/DL (2.5-4.5); POTASSIUM, SERUM 3.8 MMOL/L (3.5-5.3); SODIUM, SERUM 135 MMOL/L (135-148)
[2016-08-04 04:36] LABS: BASOPHILS 0.3 %; BASOPHILS ABSOLUTE 0.03 10/3/uL (0.0-0.16); EOSINOPHILS 1.3 %; EOSINOPHILS ABSOLUTE 0.13 10/3/uL (0.0-0.53); HEMATOCRIT 24.1 % (36.0-48.0); IMMATURE GRANULOCYTES 0.8 %; IMMATURE GRANULOCYTES ABSOLUTE 0.08 10/3/uL (0.0-0.11); LYMPHOCYTES 6.8 %; LYMPHOCYTES ABSOLUTE 0.66 10/3/uL (0.67-4.30); MEAN CORPUS HGB CONC 33.2 g/dL (32.0-36.0); MEAN CORPUSCULAR HEMOGLOB 26.7 pg (26.0-34.0); MEAN CORPUSCULAR VOLUME 80.3 fL (80-100); MEAN PLATELET VOLUME 9.3 fL (9.2-13.0); MONOCYTES 10.2 %; NEUTROPHILS 80.6 %; NEUTROPHILS ABSOLUTE 7.86 10/3/uL (2.02-8.40); PLATELET COUNT 243 10/3/uL (150-400); RBC DISTRIBUTION WIDTH 16.2 % (12.0-16.0); WHITE BLOOD CELLS 9.8 10/3/uL (4.5-10.5)
[2016-08-04 04:44] LABS: MANUAL DIFF NO %
[2016-08-04 04:55] LABS: ALBUMIN 2.5 G/DL (3.5-5.0); CALCIUM, SERUM 8.1 MG/DL (8.5-10.4); CHLORIDE, SERUM 102 MMOL/L (96-112); CO2 (CARBON DIOXIDE) 19 MMOL/L (24-34); CREATININE 3.82 MG/DL (0.55-1.02); GFR AFRICAN AMERICAN 13 ML/MIN (>=60); GFR NON AFRICAN AMERICAN 11 ML/MIN (>=60); PHOSPHORUS, SERUM 5.2 MG/DL (2.5-4.5); POTASSIUM, SERUM 3.7 MMOL/L (3.5-5.3); SODIUM, SERUM 135 MMOL/L (135-148)
[2016-08-04 05:00] LABS: BUN (BLOOD UREA NITROGEN) 67 MG/DL (6-23); GLUCOSE, SERUM 103 MG/DL (60-99)
[2016-08-05 04:18] LABS: BASOPHILS 0.3 %; BASOPHILS ABSOLUTE 0.03 10/3/uL (0.0-0.16); HEMATOCRIT 23.7 % (36.0-48.0); IMMATURE GRANULOCYTES 1.1 %; IMMATURE GRANULOCYTES ABSOLUTE 0.11 10/3/uL (0.0-0.11); LYMPHOCYTES 5.5 %; LYMPHOCYTES ABSOLUTE 0.55 10/3/uL (0.67-4.30); MEAN CORPUS HGB CONC 33.8 g/dL (32.0-36.0); MEAN CORPUSCULAR HEMOGLOB 26.9 pg (26.0-34.0); MEAN CORPUSCULAR VOLUME 79.8 fL (80-100); MEAN PLATELET VOLUME 9.4 fL (9.2-13.0); MONOCYTES 8.4 %; MONOCYTES ABSOLUTE 0.85 10/3/uL (0.21-1.20); NEUTROPHILS 82.7 %; NEUTROPHILS ABSOLUTE 8.35 10/3/uL (2.02-8.40); PLATELET COUNT 262 10/3/uL (150-400); RBC DISTRIBUTION WIDTH 16.4 % (12.0-16.0); RED CELL COUNT 2.97 10/6/uL (4.0-5.6); WHITE BLOOD CELLS 10.1 10/3/uL (4.5-10.5)
[2016-08-05 04:23] LABS: MANUAL DIFF NO %
[2016-08-05 04:26] LABS: ALBUMIN 2.4 G/DL (3.5-5.0); BUN (BLOOD UREA NITROGEN) 69 MG/DL (6-23); CALCIUM, SERUM 7.9 MG/DL (8.5-10.4); CHLORIDE, SERUM 101 MMOL/L (96-112); CO2 (CARBON DIOXIDE) 20 MMOL/L (24-34); CREATININE 3.73 MG/DL (0.55-1.02); GFR AFRICAN AMERICAN 13 ML/MIN (>=60); GFR NON AFRICAN AMERICAN 12 ML/MIN (>=60); PHOSPHORUS, SERUM 5.6 MG/DL (2.5-4.5); POTASSIUM, SERUM 4.1 MMOL/L (3.5-5.3); SODIUM, SERUM 136 MMOL/L (135-148)
[2016-08-05 04:27] LABS: GLUCOSE, SERUM 158 MG/DL (60-99)
[2016-08-06 03:56] LABS: BASOPHILS 0.2 %; BASOPHILS ABSOLUTE 0.02 10/3/uL (0.0-0.16); EOSINOPHILS 2.9 %; EOSINOPHILS ABSOLUTE 0.33 10/3/uL (0.0-0.53); HEMOGLOBIN 8.7 g/dL (12.0-16.0); IMMATURE GRANULOCYTES 1.6 %; IMMATURE GRANULOCYTES ABSOLUTE 0.19 10/3/uL (0.0-0.11); LYMPHOCYTES 4.9 %; LYMPHOCYTES ABSOLUTE 0.57 10/3/uL (0.67-4.30); MEAN CORPUS HGB CONC 33.1 g/dL (32.0-36.0); MEAN CORPUSCULAR HEMOGLOB 26.5 pg (26.0-34.0); MEAN CORPUSCULAR VOLUME 80.2 fL (80-100); MEAN PLATELET VOLUME 8.7 fL (9.2-13.0); MONOCYTES 6.6 %; MONOCYTES ABSOLUTE 0.76 10/3/uL (0.21-1.20); NEUTROPHILS 83.8 %; NEUTROPHILS ABSOLUTE 9.68 10/3/uL (2.02-8.40); PLATELET COUNT 310 10/3/uL (150-400); RBC DISTRIBUTION WIDTH 16.4 % (12.0-16.0); RED CELL COUNT 3.28 10/6/uL (4.0-5.6); WHITE BLOOD CELLS 11.6 10/3/uL (4.5-10.5)
[2016-08-06 03:57] LABS: HEMATOCRIT 26.3 % (36.0-48.0); MANUAL DIFF NO %
[2016-08-06 04:07] LABS: ALBUMIN 2.5 G/DL (3.5-5.0); BUN (BLOOD UREA NITROGEN) 67 MG/DL (6-23); CALCIUM, SERUM 8.3 MG/DL (8.5-10.4); CHLORIDE, SERUM 104 MMOL/L (96-112); CO2 (CARBON DIOXIDE) 20 MMOL/L (24-34); CREATININE 3.41 MG/DL (0.55-1.02); GFR AFRICAN AMERICAN 15 ML/MIN (>=60); GFR NON AFRICAN AMERICAN 13 ML/MIN (>=60); PHOSPHORUS, SERUM 5.7 MG/DL (2.5-4.5); POTASSIUM, SERUM 3.8 MMOL/L (3.5-5.3); SODIUM, SERUM 138 MMOL/L (135-148)
[2016-08-06 04:10] LABS: GLUCOSE, SERUM 87 MG/DL (60-99)
[2016-08-07 06:13] LABS: BASOPHILS 0.3 %; BASOPHILS ABSOLUTE 0.04 10/3/uL (0.0-0.16); EOSINOPHILS 3.4 %; HEMATOCRIT 25.4 % (36.0-48.0); HEMOGLOBIN 8.4 g/dL (12.0-16.0); IMMATURE GRANULOCYTES 2.3 %; IMMATURE GRANULOCYTES ABSOLUTE 0.27 10/3/uL (0.0-0.11); LYMPHOCYTES 6.7 %; LYMPHOCYTES ABSOLUTE 0.78 10/3/uL (0.67-4.30); MEAN CORPUS HGB CONC 33.1 g/dL (32.0-36.0); MEAN CORPUSCULAR HEMOGLOB 26.4 pg (26.0-34.0); MEAN CORPUSCULAR VOLUME 79.9 fL (80-100); MEAN PLATELET VOLUME 8.3 fL (9.2-13.0); MONOCYTES 7.2 %; MONOCYTES ABSOLUTE 0.84 10/3/uL (0.21-1.20); NEUTROPHILS 80.1 %; NEUTROPHILS ABSOLUTE 9.38 10/3/uL (2.02-8.40); PLATELET COUNT 303 10/3/uL (150-400); RBC DISTRIBUTION WIDTH 16.2 % (12.0-16.0); RED CELL COUNT 3.18 10/6/uL (4.0-5.6); WHITE BLOOD CELLS 11.7 10/3/uL (4.5-10.5)
[2016-08-07 06:14] LABS: MANUAL DIFF NO %
[2016-08-07 06:18] LABS: ALBUMIN 2.5 G/DL (3.5-5.0); BUN (BLOOD UREA NITROGEN) 69 MG/DL (6-23); CALCIUM, SERUM 7.9 MG/DL (8.5-10.4); CHLORIDE, SERUM 101 MMOL/L (96-112); CO2 (CARBON DIOXIDE) 20 MMOL/L (24-34); CREATININE 3.37 MG/DL (0.55-1.02); GFR AFRICAN AMERICAN 15 ML/MIN (>=60); GFR NON AFRICAN AMERICAN 13 ML/MIN (>=60); GLUCOSE, SERUM 93 MG/DL (60-99); PHOSPHORUS, SERUM 4.9 MG/DL (2.5-4.5); POTASSIUM, SERUM 4.4 MMOL/L (3.5-5.3); SODIUM, SERUM 135 MMOL/L (135-148)
[2016-08-08 07:36] LABS: BASOPHILS 0.3 %; BASOPHILS ABSOLUTE 0.04 10/3/uL (0.0-0.16); EOSINOPHILS 2.5 %; EOSINOPHILS ABSOLUTE 0.33 10/3/uL (0.0-0.53); HEMATOCRIT 25.7 % (36.0-48.0); HEMOGLOBIN 8.4 g/dL (12.0-16.0); IMMATURE GRANULOCYTES 2.6 %; IMMATURE GRANULOCYTES ABSOLUTE 0.34 10/3/uL (0.0-0.11); LYMPHOCYTES 6.9 %; LYMPHOCYTES ABSOLUTE 0.89 10/3/uL (0.67-4.30); MEAN CORPUS HGB CONC 32.7 g/dL (32.0-36.0); MEAN CORPUSCULAR HEMOGLOB 25.8 pg (26.0-34.0); MEAN CORPUSCULAR VOLUME 78.8 fL (80-100); MEAN PLATELET VOLUME 8.6 fL (9.2-13.0); MONOCYTES 5.9 %; MONOCYTES ABSOLUTE 0.76 10/3/uL (0.21-1.20); NEUTROPHILS 81.8 %; NEUTROPHILS ABSOLUTE 10.59 10/3/uL (2.02-8.40); PLATELET COUNT 343 10/3/uL (150-400); RBC DISTRIBUTION WIDTH 16.6 % (12.0-16.0); RED CELL COUNT 3.26 10/6/uL (4.0-5.6)
[2016-08-08 07:39] LABS: MANUAL DIFF NO %
[2016-08-08 07:48] LABS: ALBUMIN 2.6 G/DL (3.5-5.0); BUN (BLOOD UREA NITROGEN) 73 MG/DL (6-23); CALCIUM, SERUM 8.1 MG/DL (8.5-10.4); CHLORIDE, SERUM 99 MMOL/L (96-112); CO2 (CARBON DIOXIDE) 21 MMOL/L (24-34); GFR AFRICAN AMERICAN 14 ML/MIN (>=60); GFR NON AFRICAN AMERICAN 12 ML/MIN (>=60); GLUCOSE, SERUM 84 MG/DL (60-99); PHOSPHORUS, SERUM 5.3 MG/DL (2.5-4.5); POTASSIUM, SERUM 4.5 MMOL/L (3.5-5.3); SODIUM, SERUM 134 MMOL/L (135-148)
[2016-08-09 07:17] LABS: BASOPHILS 0.6 %; BASOPHILS ABSOLUTE 0.07 10/3/uL (0.0-0.16); EOSINOPHILS 2.7 %; EOSINOPHILS ABSOLUTE 0.34 10/3/uL (0.0-0.53); HEMATOCRIT 26.6 % (36.0-48.0); HEMOGLOBIN 8.8 g/dL (12.0-16.0); IMMATURE GRANULOCYTES 3.2 %; LYMPHOCYTES 5.6 %; LYMPHOCYTES ABSOLUTE 0.71 10/3/uL (0.67-4.30); MANUAL DIFF NO %; MEAN CORPUS HGB CONC 33.1 g/dL (32.0-36.0); MEAN CORPUSCULAR HEMOGLOB 26.4 pg (26.0-34.0); MEAN CORPUSCULAR VOLUME 79.9 fL (80-100); MEAN PLATELET VOLUME 8.2 fL (9.2-13.0); MONOCYTES 6.8 %; MONOCYTES ABSOLUTE 0.85 10/3/uL (0.21-1.20); NEUTROPHILS 81.1 %; NEUTROPHILS ABSOLUTE 10.21 10/3/uL (2.02-8.40); PLATELET COUNT 347 10/3/uL (150-400); RBC DISTRIBUTION WIDTH 16.2 % (12.0-16.0); RED CELL COUNT 3.33 10/6/uL (4.0-5.6); WHITE BLOOD CELLS 12.6 10/3/uL (4.5-10.5)
[2016-08-09 07:32] LABS: ALBUMIN 2.5 G/DL (3.5-5.0); BUN (BLOOD UREA NITROGEN) 75 MG/DL (6-23); CALCIUM, SERUM 8.4 MG/DL (8.5-10.4); CHLORIDE, SERUM 98 MMOL/L (96-112); CO2 (CARBON DIOXIDE) 22 MMOL/L (24-34); CREATININE 3.55 MG/DL (0.55-1.02); GFR AFRICAN AMERICAN 14 ML/MIN (>=60); GFR NON AFRICAN AMERICAN 12 ML/MIN (>=60); GLUCOSE, SERUM 90 MG/DL (60-99); POTASSIUM, SERUM 4.5 MMOL/L (3.5-5.3); SODIUM, SERUM 134 MMOL/L (135-148)
[2016-08-10 06:10] LABS: BASOPHILS 0.3 %; BASOPHILS ABSOLUTE 0.03 10/3/uL (0.0-0.16); EOSINOPHILS 1.9 %; EOSINOPHILS ABSOLUTE 0.19 10/3/uL (0.0-0.53); HEMOGLOBIN 8.5 g/dL (12.0-16.0); IMMATURE GRANULOCYTES 1.9 %; LYMPHOCYTES ABSOLUTE 0.62 10/3/uL (0.67-4.30); MEAN CORPUS HGB CONC 32.7 g/dL (32.0-36.0); MEAN CORPUSCULAR HEMOGLOB 25.5 pg (26.0-34.0); MEAN CORPUSCULAR VOLUME 78.1 fL (80-100); MEAN PLATELET VOLUME 8.4 fL (9.2-13.0); MONOCYTES 6.4 %; MONOCYTES ABSOLUTE 0.66 10/3/uL (0.21-1.20); NEUTROPHILS 83.5 %; NEUTROPHILS ABSOLUTE 8.56 10/3/uL (2.02-8.40); PLATELET COUNT 340 10/3/uL (150-400); RBC DISTRIBUTION WIDTH 16.5 % (12.0-16.0); RED CELL COUNT 3.33 10/6/uL (4.0-5.6); WHITE BLOOD CELLS 10.3 10/3/uL (4.5-10.5)
[2016-08-10 06:14] LABS: MANUAL DIFF NO %
[2016-08-10 06:29] LABS: ALBUMIN 2.7 G/DL (3.5-5.0); BUN (BLOOD UREA NITROGEN) 75 MG/DL (6-23); CALCIUM, SERUM 8.4 MG/DL (8.5-10.4); CHLORIDE, SERUM 99 MMOL/L (96-112); CO2 (CARBON DIOXIDE) 22 MMOL/L (24-34); CREATININE 3.43 MG/DL (0.55-1.02); GFR AFRICAN AMERICAN 15 ML/MIN (>=60); GFR NON AFRICAN AMERICAN 13 ML/MIN (>=60); PHOSPHORUS, SERUM 4.7 MG/DL (2.5-4.5); POTASSIUM, SERUM 4.8 MMOL/L (3.5-5.3); SODIUM, SERUM 133 MMOL/L (135-148)
[2016-08-10 06:32] LABS: GLUCOSE, SERUM 114 MG/DL (60-99)
[2016-08-11 04:21] LABS: ALBUMIN 2.6 G/DL (3.5-5.0); BUN (BLOOD UREA NITROGEN) 78 MG/DL (6-23); CALCIUM, SERUM 8.2 MG/DL (8.5-10.4); CHLORIDE, SERUM 98 MMOL/L (96-112); CO2 (CARBON DIOXIDE) 22 MMOL/L (24-34); CREATININE 3.44 MG/DL (0.55-1.02); GFR AFRICAN AMERICAN 15 ML/MIN (>=60); GFR NON AFRICAN AMERICAN 13 ML/MIN (>=60); PHOSPHORUS, SERUM 4.5 MG/DL (2.5-4.5); POTASSIUM, SERUM 4.4 MMOL/L (3.5-5.3); SODIUM, SERUM 133 MMOL/L (135-148)
[2016-08-11 04:32] LABS: GLUCOSE, SERUM 210 MG/DL (60-99)
[2016-08-12 05:25] LABS: ALBUMIN 2.7 G/DL (3.5-5.0); CALCIUM, SERUM 8.8 MG/DL (8.5-10.4); CHLORIDE, SERUM 97 MMOL/L (96-112); CO2 (CARBON DIOXIDE) 22 MMOL/L (24-34); CREATININE 3.55 MG/DL (0.55-1.02); GFR AFRICAN AMERICAN 14 ML/MIN (>=60); GFR NON AFRICAN AMERICAN 12 ML/MIN (>=60); PHOSPHORUS, SERUM 5.1 MG/DL (2.5-4.5); POTASSIUM, SERUM 4.4 MMOL/L (3.5-5.3); SODIUM, SERUM 136 MMOL/L (135-148)
[2016-08-12 05:31] LABS: BUN (BLOOD UREA NITROGEN) 83 MG/DL (6-23); GLUCOSE, SERUM 119 MG/DL (60-99)
[2016-08-13 04:19] LABS: BASOPHILS 0.3 %; BASOPHILS ABSOLUTE 0.04 10/3/uL (0.0-0.16); EOSINOPHILS 1.1 %; EOSINOPHILS ABSOLUTE 0.13 10/3/uL (0.0-0.53); HEMATOCRIT 25.3 % (36.0-48.0); HEMOGLOBIN 8.2 g/dL (12.0-16.0); IMMATURE GRANULOCYTES 1.6 %; IMMATURE GRANULOCYTES ABSOLUTE 0.19 10/3/uL (0.0-0.11); LYMPHOCYTES 7.4 %; LYMPHOCYTES ABSOLUTE 0.88 10/3/uL (0.67-4.30); MEAN CORPUS HGB CONC 32.4 g/dL (32.0-36.0); MEAN CORPUSCULAR VOLUME 80.3 fL (80-100); MEAN PLATELET VOLUME 8.3 fL (9.2-13.0); MONOCYTES 5.7 %; MONOCYTES ABSOLUTE 0.68 10/3/uL (0.21-1.20); NEUTROPHILS 83.9 %; NEUTROPHILS ABSOLUTE 10.01 10/3/uL (2.02-8.40); PLATELET COUNT 303 10/3/uL (150-400); RBC DISTRIBUTION WIDTH 16.8 % (12.0-16.0); RED CELL COUNT 3.15 10/6/uL (4.0-5.6); WHITE BLOOD CELLS 11.9 10/3/uL (4.5-10.5)
[2016-08-13 04:21] LABS: MANUAL DIFF NO %
[2016-08-13 04:33] LABS: ALBUMIN 2.7 G/DL (3.5-5.0); CALCIUM, SERUM 8.1 MG/DL (8.5-10.4); CHLORIDE, SERUM 99 MMOL/L (96-112); CO2 (CARBON DIOXIDE) 25 MMOL/L (24-34); GLUCOSE, SERUM 134 MG/DL (60-99); POTASSIUM, SERUM 4.5 MMOL/L (3.5-5.3); SODIUM, SERUM 134 MMOL/L (135-148)
[2016-08-13 04:34] LABS: BUN (BLOOD UREA NITROGEN) 53 MG/DL (6-23); CREATININE 2.69 MG/DL (0.55-1.02); GFR AFRICAN AMERICAN 20 ML/MIN (>=60); GFR NON AFRICAN AMERICAN 17 ML/MIN (>=60); PHOSPHORUS, SERUM 3.7 MG/DL (2.5-4.5)
[2016-08-13 11:35] LABS: HEPATITIS B SURFACE ANTIGEN NON-REACTIVE (NON-REACT)
[2016-08-13 11:45] LABS: HEPATITIS C ANTIBODY NON-REACTIVE (NON-REACT)
[2016-08-13 11:49] LABS: HIV COMBO NON-REACTIVE (NON REAC)
[2016-08-13 11:50] LABS: HEP A ANTIBODY IGM NON-REACTIVE (NON-REACT)
[2016-08-13 12:58] LABS: HEPATITIS B CORE AB IGM REACTIVE (NON-REAC)
[2016-08-14 12:23] LABS: BASOPHILS 0.3 %; BASOPHILS ABSOLUTE 0.04 10/3/uL (0.0-0.16); EOSINOPHILS 1.8 %; EOSINOPHILS ABSOLUTE 0.23 10/3/uL (0.0-0.53); HEMATOCRIT 27.6 % (36.0-48.0); HEMOGLOBIN 8.8 g/dL (12.0-16.0); IMMATURE GRANULOCYTES ABSOLUTE 0.13 10/3/uL (0.0-0.11); LYMPHOCYTES 6.4 %; LYMPHOCYTES ABSOLUTE 0.83 10/3/uL (0.67-4.30); MEAN CORPUS HGB CONC 31.9 g/dL (32.0-36.0); MEAN CORPUSCULAR VOLUME 81.4 fL (80-100); MEAN PLATELET VOLUME 8.3 fL (9.2-13.0); MONOCYTES 5.8 %; MONOCYTES ABSOLUTE 0.75 10/3/uL (0.21-1.20); NEUTROPHILS 84.7 %; NEUTROPHILS ABSOLUTE 11.03 10/3/uL (2.02-8.40); PLATELET COUNT 304 10/3/uL (150-400); RBC DISTRIBUTION WIDTH 16.8 % (12.0-16.0); RED CELL COUNT 3.39 10/6/uL (4.0-5.6)
[2016-08-14 12:24] LABS: MANUAL DIFF NO %
[2016-08-14 12:34] LABS: ALBUMIN 2.9 G/DL (3.5-5.0); CALCIUM, SERUM 8.2 MG/DL (8.5-10.4); CHLORIDE, SERUM 100 MMOL/L (96-112); CO2 (CARBON DIOXIDE) 22 MMOL/L (24-34); CREATININE 2.88 MG/DL (0.55-1.02); GFR AFRICAN AMERICAN 18 ML/MIN (>=60); GFR NON AFRICAN AMERICAN 16 ML/MIN (>=60); PHOSPHORUS, SERUM 3.9 MG/DL (2.5-4.5); POTASSIUM, SERUM 4.7 MMOL/L (3.5-5.3); SODIUM, SERUM 133 MMOL/L (135-148)
[2016-08-14 12:35] LABS: BUN (BLOOD UREA NITROGEN) 46 MG/DL (6-23); GLUCOSE, SERUM 183 MG/DL (60-99)
[2016-08-14 13:24] LABS: ALBUMIN 2.9 G/DL (3.5-5.0); DIRECT BILIRUBIN 0.1 MG/DL (0.0-0.4); INDIRECT BILIRUBIN(NOT ORDER) 0.1 MG/DL (0.1-0.9); TOTAL BILIRUBIN 0.2 MG/DL (0-1.2); TOTAL PROTEIN 6.7 G/DL (6.0-8.5)
[2016-08-15 06:32] LABS: BASOPHILS 0.5 %; BASOPHILS ABSOLUTE 0.05 10/3/uL (0.0-0.16); EOSINOPHILS 2.1 %; EOSINOPHILS ABSOLUTE 0.22 10/3/uL (0.0-0.53); HEMATOCRIT 26.1 % (36.0-48.0); HEMOGLOBIN 8.5 g/dL (12.0-16.0); IMMATURE GRANULOCYTES ABSOLUTE 0.11 10/3/uL (0.0-0.11); LYMPHOCYTES 6.3 %; LYMPHOCYTES ABSOLUTE 0.67 10/3/uL (0.67-4.30); MANUAL DIFF NO %; MEAN CORPUS HGB CONC 32.6 g/dL (32.0-36.0); MEAN CORPUSCULAR HEMOGLOB 26.7 pg (26.0-34.0); MEAN CORPUSCULAR VOLUME 82.1 fL (80-100); MEAN PLATELET VOLUME 8.2 fL (9.2-13.0); MONOCYTES 8.1 %; MONOCYTES ABSOLUTE 0.86 10/3/uL (0.21-1.20); PLATELET COUNT 255 10/3/uL (150-400); RBC DISTRIBUTION WIDTH 16.7 % (12.0-16.0); RED CELL COUNT 3.18 10/6/uL (4.0-5.6); WHITE BLOOD CELLS 10.6 10/3/uL (4.5-10.5)
[2016-08-15 06:57] LABS: A/G RATIO 0.8 (0.7-1.9); ALBUMIN 2.7 G/DL (3.5-5.0); ALKALINE PHOSPHATASE 129 U/L (45-117); BUN (BLOOD UREA NITROGEN) 34 MG/DL (6-23); CALCIUM, SERUM 8.2 MG/DL (8.5-10.4); CHLORIDE, SERUM 100 MMOL/L (96-112); CO2 (CARBON DIOXIDE) 25 MMOL/L (24-34); CREATININE 2.84 MG/DL (0.55-1.02); GFR AFRICAN AMERICAN 19 ML/MIN (>=60); GFR NON AFRICAN AMERICAN 16 ML/MIN (>=60); GLOBULIN 3.5 G/DL (2.5-4.1); GLUCOSE, SERUM 203 MG/DL (60-99); POTASSIUM, SERUM 4.3 MMOL/L (3.5-5.3); SGOT(AST) 12 U/L (5-40); SGPT(ALT) 15 U/L (5-65); SODIUM, SERUM 135 MMOL/L (135-148); TOTAL BILIRUBIN 0.8 MG/DL (0-1.2); TOTAL PROTEIN 6.2 G/DL (6.0-8.5)
[2016-08-17 14:04] LABS: BASOPHILS 0.3 %; BASOPHILS ABSOLUTE 0.03 10/3/uL (0.0-0.16); EOSINOPHILS 2.3 %; EOSINOPHILS ABSOLUTE 0.27 10/3/uL (0.0-0.53); HEMATOCRIT 25.6 % (36.0-48.0); HEMOGLOBIN 8.2 g/dL (12.0-16.0); IMMATURE GRANULOCYTES 0.2 %; IMMATURE GRANULOCYTES ABSOLUTE 0.02 10/3/uL (0.0-0.11); LYMPHOCYTES 7.2 %; LYMPHOCYTES ABSOLUTE 0.84 10/3/uL (0.67-4.30); MEAN CORPUSCULAR HEMOGLOB 25.4 pg (26.0-34.0); MEAN PLATELET VOLUME 8.7 fL (9.2-13.0); MONOCYTES 4.6 %; MONOCYTES ABSOLUTE 0.54 10/3/uL (0.21-1.20); NEUTROPHILS 85.4 %; NEUTROPHILS ABSOLUTE 9.97 10/3/uL (2.02-8.40); PLATELET COUNT 265 10/3/uL (150-400); RBC DISTRIBUTION WIDTH 16.6 % (12.0-16.0); RED CELL COUNT 3.23 10/6/uL (4.0-5.6); WHITE BLOOD CELLS 11.7 10/3/uL (4.5-10.5)
[2016-08-17 14:07] LABS: MANUAL DIFF NO %; MEAN CORPUSCULAR VOLUME 79.3 fL (80-100)
[2016-08-17 14:13] LABS: ALBUMIN 2.8 G/DL (3.5-5.0); CALCIUM, SERUM 8.4 MG/DL (8.5-10.4); CHLORIDE, SERUM 95 MMOL/L (96-112); CO2 (CARBON DIOXIDE) 23 MMOL/L (24-34); GFR AFRICAN AMERICAN 15 ML/MIN (>=60); GFR NON AFRICAN AMERICAN 13 ML/MIN (>=60); GLUCOSE, SERUM 186 MG/DL (60-99); PHOSPHORUS, SERUM 4.8 MG/DL (2.5-4.5); POTASSIUM, SERUM 4.5 MMOL/L (3.5-5.3); SODIUM, SERUM 131 MMOL/L (135-148)
[2016-08-17 14:15] LABS: BUN (BLOOD UREA NITROGEN) 69 MG/DL (6-23); CREATININE 3.38 MG/DL (0.55-1.02)
[2016-08-19 16:31] LABS: HBV DNA QUANT LOG10 VALUE Not Detected (NOTDET); HBV DNA QUANT RESULT Not Detected (NOTDET)
[2016-11-19] MEDS ORDERED: CIP5 PO (15:08)
[2016-11-19] MEDS ORDERED: DSS PO (15:10)
[2016-11-19] MEDS ORDERED: FERROUS SULFATE PO (15:11)
[2016-11-19] MEDS ORDERED: VITC500 PO (15:11)
[2017-01-18] MEDS ORDERED: PROZ10 PO (17:59)
[2017-01-19] MEDS ORDERED: LIPITOR40 PO (16:05)
== END 2016-08-18 12:33 | DRG 235 ==
LOC: SDC/OF 06:09 → CVICU 12:20 → 5NO 08-06 12:00
PROVIDERS: Hospitalist; Internal Medicine; Internal Medicine Critical Care Medicine; Internal Medicine Nephrology; Nurse Practitioner; Radiology Radiation Oncology; Registered Nurse; Thoracic Surgery (Cardiothoracic Vascular Surgery)
DX: I25.110 Atherosclerotic heart disease of native coronary artery with unstable angina pectoris (principal); N17.0 Acute kidney failure with tubular necrosis; J95.1 Acute pulmonary insufficiency following thoracic surgery; J90 Pleural effusion, not elsewhere classified; E87.70 Fluid overload, unspecified; B19.10 Unspecified viral hepatitis B without hepatic coma; N18.4 Chronic kidney disease, stage 4 (severe); J98.11 Atelectasis; E66.2 Morbid (severe) obesity with alveolar hypoventilation; D62 Acute posthemorrhagic anemia; E11.22 Type 2 diabetes mellitus with diabetic chronic kidney disease; I12.9 Hypertensive chronic kidney disease with stage 1 through stage 4 chronic kidney disease, or unspecified chronic kidney disease; E78.5 Hyperlipidemia, unspecified; I73.9 Peripheral vascular disease, unspecified; K21.9 Gastro-esophageal reflux disease without esophagitis; E11.40 Type 2 diabetes mellitus with diabetic neuropathy, unspecified; Z90.710 Acquired absence of both cervix and uterus; I25.2 Old myocardial infarction; I70.1 Atherosclerosis of renal artery; Z68.32 Body mass index [BMI] 32.0-32.9, adult; D50.9 Iron deficiency anemia, unspecified; Z79.4 Long term (current) use of insulin
CPT/HCPCS: 36415; 36558; 36600; 71010; 71020; 77001; 80048; 80053; 80069; 80074; 80076; 81001; 82043; 82330; 82570; 82803; 82805; 82947; 82962; 83036; 83540; 83550; 83735; 83880; 84100; 84132; 84155; 84165; 84295; 84300; 84439; 84443; 85014; 85018; 85025; 85347; 85384; 85610; 85730; 86704; 86706; 86708; 86850; 86900; 86901; 86920; 87086; 87389; 87517; 87641; 93005; 93312; 93320; 93325; 93975; 94002; 94640; 94660; 94667; 94668; 94770; 97110-GP; 97116-GP; 97161-GP; 97530-GP; A9270-GY; C1713; C1750; C1769; G0257; J0690; J1644; J1940; J2150; J2250; J2370; J2405; J2440; J2720; J2930; J3010; J3370; J3475; J3480; P9016; P9035; P9045; P9047; P9059

== ENCOUNTER 2016-08-18 21:34 | Emergency (ER) | payer OTHER ==
[2016-11-19] MEDS ORDERED: CIP5 PO (15:08)
[2016-11-19] MEDS ORDERED: DSS PO (15:10)
[2016-11-19] MEDS ORDERED: FERROUS SULFATE PO (15:11)
[2016-11-19] MEDS ORDERED: VITC500 PO (15:11)
[2017-01-18] MEDS ORDERED: PROZ10 PO (17:59)
[2017-01-19] MEDS ORDERED: LIPITOR40 PO (16:05)
== END 2016-08-18 21:41 | disposition home or self-care (01) ==
LOC: ER 21:34
DX: T82.838A Hemorrhage due to vascular prosthetic devices, implants and grafts, initial encounter (principal); I25.2 Old myocardial infarction; I12.9 Hypertensive chronic kidney disease with stage 1 through stage 4 chronic kidney disease, or unspecified chronic kidney disease; E11.22 Type 2 diabetes mellitus with diabetic chronic kidney disease; N18.9 Chronic kidney disease, unspecified; Z95.1 Presence of aortocoronary bypass graft; Z90.710 Acquired absence of both cervix and uterus; Z88.5 Allergy status to narcotic agent; Z88.8 Allergy status to other drugs, medicaments and biological substances; Z79.4 Long term (current) use of insulin; Z79.899 Other long term (current) drug therapy
CPT/HCPCS: 71010; 99284

== ENCOUNTER 2016-09-29 21:18 | Inpatient (IN) | payer OTHER ==
--- NOTE | ~2016-09-29 | HP ---
History And Physical [address] [place]. [address] NAME: BASILIA BAÑUELOS : 45 STATUS : ADM IN [facility]#: [id number] AGE: 71 ADM/REG DATE : 09/30/16 MR#: [id number] REPORT SERV DATE: 09/30/16 DICTATED BY: WILLIAM SLOAN DATE: 09/30/16 REPORT STATUS : Draft TRANSCRIBED BY: MODL DATE: 09/30/16 DATE OF ADMISSION: 09/30/2016 CHIEF COMPLAINT: Right hip pain. HISTORY: This is a 71-year-old female, who has had a complicated recent past medical history starting with a CABG about two months ago, was reportedly on her way leaving rehab and in the process of handing something to someone else, tripped, fell, lost her balance, and fractured her right hip. She has some associated knee pain, but denies any specific pain or injury elsewhere. ALLERGIES: STATINS, CODEINE, AND FENTANYL. MEDICATIONS: See chart. PAST MEDICAL HISTORY: Migraines; neuropathy; cataracts; hearing loss; coronary artery disease with long history there, first VA was 15 years ago, history of subsequent dysrhythmias; spinal stenosis; GERD; and diabetes. PAST SURGICAL HISTORY: Vascular surgery stent in her left leg in 2014, Dr. Yu; hysterectomy 23 years ago; surgery on left foot lesion in 2013; valve procedure in 2005; heart catheterization in 2015; cardiac stent x2 in 2001; recent cardiac bypass as noted. SOCIAL HISTORY: Quit tobacco. No alcohol or illicit drug use. FAMILY HISTORY: No known anesthetic complications. REVIEW OF SYSTEMS: As above. PHYSICAL EXAMINATION: GENERAL: Alert and oriented x3, in no apparent distress except for severe pain in the right hip. SKIN: Intact. Compartment supple. 2+ pulses. NEURO: Sensory motor without deficit. HEAD: Atraumatic, normocephalic. NECK: Supple. CHEST: Symmetric, nontender. LUNGS: Per AA evaluation. CV: Regular. ABDOMEN: Soft. No mass. EXTREMITIES: Both upper extremities and left lower extremity without acute trauma. Right lower extremity is short and externally rotated. She has minimal effusion in the knee, otherwise nontender. X-RAY: Right hip displaced intertrochanteric femur fracture. History And Physical [address] [address] NAME: BASILIA BAÑUELOS : 45 STATUS : ADM IN PAT#: [id number] AGE: 71 ADM/REG DATE : 09/30/16 MR#: [id number] REPORT SERV DATE: 09/30/16 DICTATED BY: WILLIAM SLOAN DATE: 09/30/16 REPORT STATUS : Draft TRANSCRIBED BY: MODMarion DATE: 09/30/16 ASSESSMENT: Right intertrochanteric femur fracture. Multiple recent medical issues. PLAN: I have discussed her case with the anesthesiologist with the family at length. We have discussed risks, benefits, etc., and recommended ORIF of right hip fracture. The patient and family voiced understanding and wished to proceed. WTB/MODL Ana Sloan M.D. / [id number] CC: Baldo Serrano M.D.
--- NOTE | ~2016-09-29 | HP ---
History And Physical [place] [id number] [facility] [place]. [address] NAME: BASILIA BAÑUELOS : 45 STATUS : ADM IN PAT#: [id number] AGE: 71 ADM/REG DATE : 09/30/16 MR#: [id number] REPORT SERV DATE: 09/30/16 DICTATED BY: LATHA YU DATE: 09/30/16 REPORT STATUS : Draft TRANSCRIBED BY: MODL DATE: 09/30/16 DATE OF ADMISSION: 09/30/2016 REASON FOR ADMISSION: Right hip fracture with known end-stage renal disease. HISTORY OF PRESENT ILLNESS: This is a very pleasant 71-year-old female patient, who dialyzes at [address] on Wednesday, Wednesday, and Wednesday, scheduled via a right subclavian access. She resides at [facility], reports to [facility] for sustained fall striking her head and her right hip sustaining an intertrochanteric fracture of the right femur. She reports that, she was attempting to answer telephone, simply became entangled in the bed sheets of her bed and sustained fall as listed above. The patient is currently on a CAR MANAGER for pain control, is awake and alert, but somewhat somnolent and drowsy. She states that her pain is reasonably controlled. Denies current chest pain. No nausea, vomiting, or diarrhea. PAST MEDICAL HISTORY: Positive for end-stage renal disease, Wednesday, Wednesday, and Wednesday at [address] [place] [address] via a right subclavian access. Remainder of her history is positive for diabetes mellitus, hypertension, hyperlipidemia, gastroesophageal reflux disease, remote history of tobacco abuse, COPD, CAD with previous CABG x3 on 07/30/2016, and positive hepatitis B core IgM. REVIEW OF SYSTEMS: Completed. Please see HPI for pertinent details. SOCIAL HISTORY: No ETOH. No illicit drugs. No tobacco. Remote history of tobacco abuse. Lives currently at [facility]. ALLERGIES: SHE LISTS ALLERGIES TO STATINS, ADVERSE REACTIONS WELL TO CODEINE AND FENTANYL. ACTIVE MEDICATIONS: Include albuterol one puff inhaled q.4 hours p.r.n., Norvasc 10 mg daily, ASA 81 mg daily, Coreg 12.5 mg p.o. b.i.d., Plavix 75 mg p.o. daily, gabapentin 100 mg p.o. b.i.d., Apresoline 50 mg p.o. q.8 hours, Levemir 30 units subcu daily, Levemir 20 units subcu at bedtime, Humalog via sliding scale +3 units, Levaquin 500 mg p.o. Wednesday, Wednesday, Wednesday post dialysis x8 doses initiated on 09/23/2016, Antivert 25 mg p.o. daily, Dulera two puffs inhaled p.o. b.i.d., Zantac 150 mg p.o. b.i.d., Ultram 50 mg daily. PHYSICAL EXAMINATION: VITAL SIGNS: Blood pressure 164/72, temperature 97.8, respiratory rate 20, heart rate 84 beats per minute and regular. She is on 4 L nasal cannula and saturating 99%. GENERAL: She is a chronically ill-appearing female patient, who is awake and alert. During evaluation, somewhat somnolent and drowsy related to pain control mechanism of CAR MANAGER, but responsive and appropriate. HEENT: Normocephalic and atraumatic. Normal ocular movements. No scleral icterus or conjunctival pallor is appreciated. NECK: Without thyromegaly. No JVD or mass. History And Physical [address] [address] NAME: BASILIA BAÑUELOS : 45 STATUS : ADM IN [facility]#: [id number] AGE: 71 ADM/REG DATE : 09/30/16 MR#: [id number] REPORT SERV DATE: 09/30/16 DICTATED BY: LATHA YU DATE: 09/30/16 REPORT STATUS : Draft TRANSCRIBED BY: FIDE DATE: 09/30/16 CHEST: Shows positive S1 and S2. No rubs or gallops. LUNGS: Diminished throughout. No wheezes, but rhonchi to the left base posteriorly. GI: Shows positive bowel sounds in all four quadrants. No appreciable mass or tenderness. : Deferred. EXTREMITIES: Show positive pulses. No clubbing, cyanosis, or edema. NEUROLOGIC: She is intact, somewhat somnolent and drowsy. She does complain of pain to her injured hip. She did sustain a contusion to her head, but no subdural injury according to the CT of her brain and she is of appropriate mood and affect. LABORATORY DATA: Pertinent laboratories and imaging to this evaluation are as follows. Chest x-ray is clear. Right hip x-ray shows comminuted intertrochanteric fracture of the right femur. Urinalysis is negative for protein, glucose, ketones, blood, or leukocyte esterase with minimal white and red blood cells. Chest pain profile shows white blood cell count of 14.3, RBC 3.89, hemoglobin 10.5, hematocrit 32.6, platelets 286, sodium 138, potassium 3.8, chloride 101, CO2 of 29, BUN 19, creatinine 2.7, reflected GFR is 17 mL/minute, calcium 8.7, magnesium 2.0, troponin less than 0.02. Brain without contrast, no acute intracranial hemorrhage or other intracranial pathology is noted with moderate diffuse cerebral involutional changes, mild old white matter microvascular ischemic changes, old lacunar infarct right basal ganglia, 2010, infiltration of soft tissue planes with small amount of gas within the fat planes of left occipital scalp consistent with reported scalp laceration. IMPRESSION AND PLAN: End-stage renal disease, Wednesday, Wednesday, and Wednesday, who resides at [facility] sustaining fall and femoral fracture to the right side with mild leukocytosis and afebrile with known history as listed above, now admitted to [facility]. We will place the patient on her home medications. Hemodialysis per usual schedule Wednesday, Wednesday, Wednesday. Ask that Orthopedic Services to evaluate the patient for intervention and continue her p.o. Levaquin as that has been placed. It is not clear at this point clinical reasoning for initiation of the antibiotic. Her urinalysis appears to be stable and clear of any signs of infection. However, she does have a mild elevation of white count, which could be stress reaction from her fall, however we will culture her and continue p.o. Levaquin as stated in plan previous. No further antibiotics at this time until cultures result should she show need for initiation. We will also place her on DuoNeb q.6 h. and p.r.n. considering her COPD history. Strict I's and Os, daily weights. She will eventually require physical therapy evaluation and certainly will require some level of rehabilitation that will be planned out as her care proceeds. Further modification and treatment plan may be made based on clinical presentation, patient laboratory results, further consultation with renal attending. We appreciate Orthopedic services as well as other services within current medical facility assisting in this patient's care. DICTATED BY: Donny Kwon NP JR/FIDE Latha Yu M.D. History And Physical [address] [address] NAME: BASILIA BAÑUELOS : 45 STATUS : ADM IN PAT#: [id number] AGE: 71 ADM/REG DATE : 09/30/16 MR#: [id number] REPORT SERV DATE: 09/30/16 DICTATED BY: LATHA YU DATE: 09/30/16 REPORT STATUS : Draft TRANSCRIBED BY: FIDE DATE: 09/30/16 / [id number] CC: Baldo Serrano M.D.
--- NOTE | ~2016-09-29 | OP ---
Record Of Operation [facility] [address] [place]. [address] NAME: BASILIA BAÑUELOS : 45 STATUS : ADM IN PAT#: [id number] AGE: 71 ADM/REG DATE : 09/30/16 MR#: [id number] REPORT SERV DATE: 10/01/16 DICTATED BY: WILLIAM SLOAN DATE: 10/01/16 REPORT STATUS : Draft TRANSCRIBED BY: MODMarion DATE: 10/01/16 DATE OF PROCEDURE: 09/30/2016 PREOPERATIVE DIAGNOSIS: Right intertrochanteric femur fracture. POSTOPERATIVE DIAGNOSIS: Right intertrochanteric femur fracture. OPERATION: [place]/intertrochanteric femur fracture. SIDE: Right. SIZE: See chart. FINANCIAL DIRECTOR: ESTIMATED BLOOD LOSS: About 100 mL. COMPLICATIONS: None. TOURNIQUET TIME: None. SPECIMENS: None. ANESTHESIA: See chart. PROCEDURE: The patient was taken to the preoperative holding area. The patient was appropriately identified, marked and the consent form carefully checked. The patient was taken then to the operating room and anesthetic was induced per the anesthesiologist. The patient was carefully positioned, carefully padded, prepped and draped on the fracture table. Prior to the surgical prep a closed reduction was obtained by closed method using fluoroscopic guidance. The patient was then prepped and draped in the usual sterile fashion. Using fluoroscopic guidance, a straight lateral incision was made. This was followed by electrocautery through the fat, the IT band and the vastus, staying towards the posterior portion of the lateral vastus to decrease the amount of muscle tissue that was cut through. Meticulous hemostasis was obtained with electrocautery. Lateral femoral cortex was exposed further with periosteal elevator and appropriate retraction. A guide was then used to place a guidewire basically in the center of the head on AP and lateral x-ray views. This was followed by depth gauge and then triple reamer. Lag screw was placed over the guidewire. The sliding plate was then placed and impacted and checked to be sure it was down snug. The plate was held with a plate clamp distally and reduction again checked. Record Of Operation [facility] [address] [place]. [address] NAME: BASILIA BAÑUELOS : 45 STATUS : ADM IN PAT#: [id number] AGE: 71 ADM/REG DATE : 09/30/16 MR#: [id number] REPORT SERV DATE: 10/01/16 DICTATED BY: WILLIAM SLOAN DATE: 10/01/16 REPORT STATUS : Draft TRANSCRIBED BY: FIDE DATE: 10/01/16 The screw holes in the plate were then filled with screws in the standard fashion with drill depth gauge and then self-tapping screw placement. The screws were then tightened by hand. All traction was released and the compression screw placed and tightened. Again x-ray views were checked to ascertain reduction and screw length. The wound was then irrigated and closed with sutures in the vastus. A medium drain was placed distally anteriorly between the vastus and the IT band, then sutured on the IT band, 2-0 subcutaneous, and jodi in the skin. Wound dressed sterilely. The patient was awakened and carefully transferred to the bed and transferred to the recovery room without incident. COUNTS: Correct. WTB/FIDE Ana Sloan M.D. / [id number] CC: Baldo Serrano M.D.
--- NOTE | ~2016-09-29 | DS ---
Discharge Summary [facility] [address] [place]. [address] NAME: BASILIA BAÑUELOS : 45 STATUS : DIS IN PAT#: [id number] AGE: 71 ADM/REG DATE : 09/30/16 MR#: [id number] REPORT SERV DATE: 10/13/16 DICTATED BY: WILLIAM SLOAN DATE: 10/13/16 REPORT STATUS : Draft TRANSCRIBED BY: FIDE DATE: 10/13/16 Data Collection from hospitalization DISCHARGE DIAGNOSES: 1. Right intertrochanteric femur fracture. 2. Diabetes. 3. Hypertension. 4. End-stage renal disease. 5. Neuropathy. 6. Migraines. 7. Gastroesophageal reflux disease. 8. Coronary artery disease. 9. History of myocardial infarction. 10.Hyperlipidemia. 11.Former smoker. 12.Chronic obstructive pulmonary disease. 13.History of positive hepatitis B core IgM. CONSULTATION: Fredy Ross M.D. PROCEDURES: 1. [place]/intertrochanteric femur fracture, 09/30/2016. 2. CT scan of the brain without contrast, 09/29/2016. 3. CT scan of the brain without contrast, 10/02/2016. DISCHARGE MEDICATIONS: Norvasc 10 mg twice a day, Coreg 12.5 mg twice a day, Colace 100 mg twice a day, Zantac 150 mg twice a day, ferrous sulfate 300 mg with breakfast and supper, Levemir 30 units subcutaneously every morning and 20 units subcutaneously at bedtime, Levaquin 500 mg on Mondays, Wednesdays, and Fridays after dialysis x8 doses-stop 10/09/2016, Theragran tablets one tablet with breakfast, Coumadin as instructed, Plavix 75 mg daily, Apresoline 50 mg every 8 hours, Dulera 2 puffs via inhaler twice a day, Mylanta 30 mL as needed, Dulcolax 15 mg as needed, Humalog injection insulin subcutaneously with meals as instructed, [place] 7.5/325 one tablet every four hours as needed, Ultram 50 mg daily, milk of magnesia 30 mL as needed, Zofran 4 mg every four hours as needed, MiraLax powder one packet twice a day as needed, DuoNeb 3 mL via inhaler as needed, Ventolin one puff via inhaler every four hours as needed, Halfprin 81 mg daily, Neurontin 100 mg twice a day. CONDITION ON DISCHARGE: Stable. DISPOSITION: The patient was discharged to [facility] on a renal diet with activities as instructed. HOSPITAL COURSE: This is a 71-year-old female who has a complicated recent past medical history which started with coronary artery bypass grafting about two months prior to this admission. She was reportedly on her way leaving rehab and was in the process of handing something to someone else when she tripped, fell, lost her balance, and fractured her right hip. She had some associated knee pain, but denied any specific pain or injury elsewhere. She was admitted to the hospital at this time for further evaluation and treatment. Discharge Summary [address] [place]. [address] NAME: BASILIA BAÑUELOS : 45 STATUS : DIS IN [facility]#: [id number] AGE: 71 ADM/REG DATE : 09/30/16 MR#: [id number] REPORT SERV DATE: 10/13/16 DICTATED BY: WILLIAM SLOAN DATE: 10/13/16 REPORT STATUS : Draft TRANSCRIBED BY: FIDE DATE: 10/13/16 Upon admission, she had been found to have a right intertrochanteric femur fracture. Treatment options were discussed and it was elected to proceed with surgical intervention. She was seen by Dr. Fredy Ross regarding right hip fracture with known end-stage renal disease. She dialyzes on Mondays, Wednesdays, and Fridays. She resides at [facility]. White blood cell count was 14.3. Troponin was less than 0.02. Creatinine was 2.7. CT scan of the brain without contrast showed no acute intracranial hemorrhage or other intracranial pathology with moderate diffuse cerebral involutional changes, mild old white matter microvascular ischemic changes, old lacunar infarct, right basal ganglia 2010 with infiltration of soft tissue planes with small amount of gas within the fat planes of the left occipital scalp consistent with reported scalp laceration. She was placed on her home medications. Hemodialysis would be continued. She will also continue her oral Levaquin. She was placed on DuoNeb. The patient was taken to the operating room where she underwent the above-mentioned procedure. She tolerated this well, and there were no complications. On postop day #1, she was comfortable. She was tolerating pain well. Age-old OxyContin was held on 10/02. Hemodialysis Therapy was performed. She was going to be transfused during hemodialysis. We encouraged her to mobilize with Physical Therapy. CT scan of the brain without contrast showed no acute process. On 10/03/2016, her hemoglobin level had increased after transfusion. Supportive care continued. She had no acute complaints. JUDY hose were in place. Creatinine level was 1.93. Level 1 sliding scale insulin and Levemir were continued. The next day, discharge planning was performed. She had good pain control. She had no edema. Discharge planning continued. On 10/05/2016, she continued to do well. She was alert and cooperative. Discharge instructions were given. Hemodialysis therapy was performed. Due to her improved and stable condition, she was discharged to [facility] with the above-stated instructions. Information collected by: Salma Fowler I submit the above information as my discharge summary. TG/MODL Ana Sloan M.D. / [id number] CC: Baldo Serrano M.D. [facility] Fredy Ross M.D.
[2016-09-29 23:17] LABS: BASOPHILS 0.3 %; BASOPHILS ABSOLUTE 0.04 10/3/uL (0.0-0.16); EOSINOPHILS 1.6 %; EOSINOPHILS ABSOLUTE 0.23 10/3/uL (0.0-0.53); HEMATOCRIT 32.6 % (36.0-48.0); HEMOGLOBIN 10.5 g/dL (12.0-16.0); IMMATURE GRANULOCYTES 0.8 %; IMMATURE GRANULOCYTES ABSOLUTE 0.11 10/3/uL (0.0-0.11); LYMPHOCYTES 3.9 %; LYMPHOCYTES ABSOLUTE 0.56 10/3/uL (0.67-4.30); MEAN CORPUSCULAR VOLUME 83.8 fL (80-100); MEAN PLATELET VOLUME 8.6 fL (9.2-13.0); MONOCYTES 4.1 %; MONOCYTES ABSOLUTE 0.58 10/3/uL (0.21-1.20); NEUTROPHILS 89.3 %; NEUTROPHILS ABSOLUTE 12.78 10/3/uL (2.02-8.40); PLATELET COUNT 286 10/3/uL (150-400); RBC DISTRIBUTION WIDTH 17.6 % (12.0-16.0); RED CELL COUNT 3.89 10/6/uL (4.0-5.6)
[2016-09-29 23:18] LABS: ER CBC TAT 0 Hrs 08 Mins; MANUAL DIFF NO %; MEAN CORPUS HGB CONC 32.2 g/dL (32.0-36.0); WHITE BLOOD CELLS 14.3 10/3/uL (4.5-10.5)
[2016-09-29 23:24] LABS: INTERNATIONAL NORMAL RATI 1.1 UNITS (-)
[2016-09-29 23:33] LABS: BUN (BLOOD UREA NITROGEN) 19 MG/DL (6-23); CALCIUM, SERUM 8.7 MG/DL (8.5-10.4); CHEST PAIN PROFILE TAT 0 Hrs 23 Mins; CHLORIDE, SERUM 101 MMOL/L (96-112); CO2 (CARBON DIOXIDE) 29 MMOL/L (24-34); GFR AFRICAN AMERICAN 20 ML/MIN (>=60); GFR NON AFRICAN AMERICAN 17 ML/MIN (>=60); GLUCOSE, SERUM 155 MG/DL (60-99); POTASSIUM, SERUM 3.8 MMOL/L (3.5-5.3); SODIUM, SERUM 138 MMOL/L (135-148); TROPONIN I <0.02 NG/ML (<0.05)
[2016-09-29] MEDS ORDERED: DULERA 200 MCG/13 GM INH (23:41)
[2016-09-29] MEDS ORDERED: NORV10 PO (23:42)
[2016-09-29] MEDS ORDERED: COREG12 PO (23:42)
[2016-09-29] MEDS ORDERED: HALF81 PO (23:42)
[2016-09-29] MEDS ORDERED: PLAVIX PO (23:42)
[2016-09-29] MEDS ORDERED: NEUR100 PO (23:43)
[2016-09-29] MEDS ORDERED: HUMALOG (23:43)
[2016-09-29] MEDS ORDERED: APRES50 PO (23:44)
[2016-09-29] MEDS ORDERED: NOVOPEN SC (23:44)
[2016-09-29] MEDS ORDERED: LEVEMIR SC ×2 (23:45)
[2016-09-29] MEDS ORDERED: LEVAQUIN5T PO (23:46)
[2016-09-29] MEDS ORDERED: ZANTAC 150 PO (23:46)
[2016-09-29] MEDS ORDERED: MCZ25 PO (23:46)
[2016-09-29] MEDS ORDERED: ULTRAM50 PO (23:47)
[2016-09-29] MEDS ORDERED: VENTOLIN HFA INH (23:47)
[2016-09-30 00:13] LABS: ASCORBIC ACID (UR NOT ORDER) NEG (NEG); BILIRUBIN, URINE NEGATIVE (NEG); ER URINALYSIS TAT 0 Hrs 00 Mins; KETONE, URINE NEGATIVE (NEG); LEUKOCYTE ESTERASE(NOT OR NEG (NEG); NITRITE (URINE) NEG (NEG); WBC (NOT ORDERED) (RFLEX) 2 (0-5)
[2016-09-30 09:27] LABS: BASOPHILS 0.3 %; BASOPHILS ABSOLUTE 0.03 10/3/uL (0.0-0.16); EOSINOPHILS 0.4 %; EOSINOPHILS ABSOLUTE 0.04 10/3/uL (0.0-0.53); HEMATOCRIT 27.5 % (36.0-48.0); HEMOGLOBIN 8.9 g/dL (12.0-16.0); IMMATURE GRANULOCYTES 0.7 %; IMMATURE GRANULOCYTES ABSOLUTE 0.07 10/3/uL (0.0-0.11); LYMPHOCYTES ABSOLUTE 0.53 10/3/uL (0.67-4.30); MANUAL DIFF NO %; MEAN CORPUS HGB CONC 32.4 g/dL (32.0-36.0); MEAN CORPUSCULAR VOLUME 83.3 fL (80-100); MEAN PLATELET VOLUME 8.8 fL (9.2-13.0); MONOCYTES 5.8 %; MONOCYTES ABSOLUTE 0.61 10/3/uL (0.21-1.20); NEUTROPHILS 87.8 %; NEUTROPHILS ABSOLUTE 9.24 10/3/uL (2.02-8.40); PLATELET COUNT 253 10/3/uL (150-400); RBC DISTRIBUTION WIDTH 17.4 % (12.0-16.0); WHITE BLOOD CELLS 10.5 10/3/uL (4.5-10.5)
[2016-09-30 09:33] LABS: INTERNATIONAL NORMAL RATI 1.3 UNITS (-); PROTIME (NOT ORD) 15.9 SEC (12.0-14.5)
[2016-09-30 09:38] LABS: ALBUMIN 2.9 G/DL (3.5-5.0); BUN (BLOOD UREA NITROGEN) 21 MG/DL (6-23); CALCIUM, SERUM 8.4 MG/DL (8.5-10.4); CHLORIDE, SERUM 101 MMOL/L (96-112); CO2 (CARBON DIOXIDE) 29 MMOL/L (24-34); CREATININE 2.76 MG/DL (0.55-1.02); GFR AFRICAN AMERICAN 19 ML/MIN (>=60); GFR NON AFRICAN AMERICAN 17 ML/MIN (>=60); GLUCOSE, SERUM 168 MG/DL (60-99); PHOSPHORUS, SERUM 4.1 MG/DL (2.5-4.5); POTASSIUM, SERUM 4.2 MMOL/L (3.5-5.3); SODIUM, SERUM 137 MMOL/L (135-148)
[2016-09-30 22:28] LABS: INTERNATIONAL NORMAL RATI 1.2 UNITS (-); PROTIME (NOT ORD) 15.3 SEC (12.0-14.5)
[2016-10-01 05:01] LABS: HEMOGLOBIN 7.7 g/dL (12.0-16.0)
[2016-10-01 05:02] LABS: INTERNATIONAL NORMAL RATI 1.2 UNITS (-); PROTIME (NOT ORD) 15.4 SEC (12.0-14.5)
[2016-10-01 05:08] LABS: CALCIUM, SERUM 8.6 MG/DL (8.5-10.4); CHLORIDE, SERUM 106 MMOL/L (96-112); CO2 (CARBON DIOXIDE) 25 MMOL/L (24-34); GFR AFRICAN AMERICAN 24 ML/MIN (>=60); GFR NON AFRICAN AMERICAN 21 ML/MIN (>=60); GLUCOSE, SERUM 172 MG/DL (60-99); POTASSIUM, SERUM 4.6 MMOL/L (3.5-5.3); SODIUM, SERUM 141 MMOL/L (135-148)
[2016-10-01 05:09] LABS: BUN (BLOOD UREA NITROGEN) 16 MG/DL (6-23)
[2016-10-02 07:16] LABS: BASOPHILS 0.1 %; BASOPHILS ABSOLUTE 0.01 10/3/uL (0.0-0.16); EOSINOPHILS 0.1 %; EOSINOPHILS ABSOLUTE 0.01 10/3/uL (0.0-0.53); HEMATOCRIT 23.9 % (36.0-48.0); HEMOGLOBIN 7.7 g/dL (12.0-16.0); IMMATURE GRANULOCYTES 0.3 %; IMMATURE GRANULOCYTES ABSOLUTE 0.03 10/3/uL (0.0-0.11); LYMPHOCYTES 3.7 %; LYMPHOCYTES ABSOLUTE 0.38 10/3/uL (0.67-4.30); MANUAL DIFF NO %; MEAN CORPUS HGB CONC 32.2 g/dL (32.0-36.0); MEAN CORPUSCULAR HEMOGLOB 26.8 pg (26.0-34.0); MEAN CORPUSCULAR VOLUME 83.3 fL (80-100); MEAN PLATELET VOLUME 8.8 fL (9.2-13.0); MONOCYTES 6.8 %; NEUTROPHILS ABSOLUTE 9.14 10/3/uL (2.02-8.40); PLATELET COUNT 234 10/3/uL (150-400); RBC DISTRIBUTION WIDTH 17.5 % (12.0-16.0); RED CELL COUNT 2.87 10/6/uL (4.0-5.6); WHITE BLOOD CELLS 10.3 10/3/uL (4.5-10.5)
[2016-10-02 07:21] LABS: ALBUMIN 3.1 G/DL (3.5-5.0); CALCIUM, SERUM 8.8 MG/DL (8.5-10.4); CHLORIDE, SERUM 98 MMOL/L (96-112); CO2 (CARBON DIOXIDE) 25 MMOL/L (24-34); CREATININE 2.65 MG/DL (0.55-1.02); GFR AFRICAN AMERICAN 20 ML/MIN (>=60); GFR NON AFRICAN AMERICAN 17 ML/MIN (>=60); GLUCOSE, SERUM 194 MG/DL (60-99); PHOSPHORUS, SERUM 4.5 MG/DL (2.5-4.5); POTASSIUM, SERUM 4.4 MMOL/L (3.5-5.3); SODIUM, SERUM 136 MMOL/L (135-148)
[2016-10-02 07:22] LABS: BUN (BLOOD UREA NITROGEN) 31 MG/DL (6-23)
[2016-10-02 07:26] LABS: INTERNATIONAL NORMAL RATI 1.9 UNITS (-)
[2016-10-02 07:27] LABS: PROTIME (NOT ORD) 21.9 SEC (12.0-14.5)
[2016-10-03 05:40] LABS: BASOPHILS 0.2 %; BASOPHILS ABSOLUTE 0.02 10/3/uL (0.0-0.16); EOSINOPHILS 0.7 %; EOSINOPHILS ABSOLUTE 0.08 10/3/uL (0.0-0.53); HEMATOCRIT 31.6 % (36.0-48.0); HEMOGLOBIN 10.5 g/dL (12.0-16.0); IMMATURE GRANULOCYTES 0.9 %; LYMPHOCYTES 5.3 %; LYMPHOCYTES ABSOLUTE 0.59 10/3/uL (0.67-4.30); MANUAL DIFF NO %; MEAN CORPUS HGB CONC 33.2 g/dL (32.0-36.0); MEAN CORPUSCULAR HEMOGLOB 27.9 pg (26.0-34.0); MEAN CORPUSCULAR VOLUME 83.8 fL (80-100); MEAN PLATELET VOLUME 8.7 fL (9.2-13.0); MONOCYTES 9.4 %; MONOCYTES ABSOLUTE 1.04 10/3/uL (0.21-1.20); NEUTROPHILS 83.5 %; NEUTROPHILS ABSOLUTE 9.23 10/3/uL (2.02-8.40); PLATELET COUNT 241 10/3/uL (150-400); RBC DISTRIBUTION WIDTH 16.9 % (12.0-16.0); RED CELL COUNT 3.77 10/6/uL (4.0-5.6); WHITE BLOOD CELLS 11.1 10/3/uL (4.5-10.5)
[2016-10-03 05:53] LABS: INTERNATIONAL NORMAL RATI 2.8 UNITS (-)
[2016-10-03 05:55] LABS: CALCIUM, SERUM 8.4 MG/DL (8.5-10.4); CHLORIDE, SERUM 102 MMOL/L (96-112); CO2 (CARBON DIOXIDE) 24 MMOL/L (24-34); POTASSIUM, SERUM 3.7 MMOL/L (3.5-5.3); PROTIME (NOT ORD) 29.6 SEC (12.0-14.5); SODIUM, SERUM 138 MMOL/L (135-148)
[2016-10-03 05:57] LABS: BUN (BLOOD UREA NITROGEN) 22 MG/DL (6-23); CREATININE 1.93 MG/DL (0.55-1.02); GFR AFRICAN AMERICAN 30 ML/MIN (>=60); GFR NON AFRICAN AMERICAN 26 ML/MIN (>=60); GLUCOSE, SERUM 98 MG/DL (60-99); PHOSPHORUS, SERUM 2.4 MG/DL (2.5-4.5)
[2016-10-04 05:42] LABS: BASOPHILS 0.4 %; BASOPHILS ABSOLUTE 0.04 10/3/uL (0.0-0.16); EOSINOPHILS ABSOLUTE 0.28 10/3/uL (0.0-0.53); HEMOGLOBIN 10.7 g/dL (12.0-16.0); IMMATURE GRANULOCYTES 1.2 %; IMMATURE GRANULOCYTES ABSOLUTE 0.11 10/3/uL (0.0-0.11); LYMPHOCYTES 7.9 %; LYMPHOCYTES ABSOLUTE 0.74 10/3/uL (0.67-4.30); MEAN CORPUS HGB CONC 33.4 g/dL (32.0-36.0); MEAN CORPUSCULAR HEMOGLOB 27.8 pg (26.0-34.0); MEAN CORPUSCULAR VOLUME 83.1 fL (80-100); MONOCYTES 9.5 %; MONOCYTES ABSOLUTE 0.89 10/3/uL (0.21-1.20); NEUTROPHILS ABSOLUTE 7.34 10/3/uL (2.02-8.40); PLATELET COUNT 260 10/3/uL (150-400); RBC DISTRIBUTION WIDTH 16.9 % (12.0-16.0); RED CELL COUNT 3.85 10/6/uL (4.0-5.6); WHITE BLOOD CELLS 9.4 10/3/uL (4.5-10.5)
[2016-10-04 05:47] LABS: INTERNATIONAL NORMAL RATI 2.1 UNITS (-); MANUAL DIFF NO %
[2016-10-04 05:55] LABS: PROTIME (NOT ORD) 23.7 SEC (12.0-14.5)
[2016-10-05 06:19] LABS: ALBUMIN 2.9 G/DL (3.5-5.0); BUN (BLOOD UREA NITROGEN) 36 MG/DL (6-23); CALCIUM, SERUM 8.6 MG/DL (8.5-10.4); CHLORIDE, SERUM 101 MMOL/L (96-112); CO2 (CARBON DIOXIDE) 23 MMOL/L (24-34); CREATININE 2.47 MG/DL (0.55-1.02); GFR AFRICAN AMERICAN 22 ML/MIN (>=60); GFR NON AFRICAN AMERICAN 19 ML/MIN (>=60); GLUCOSE, SERUM 127 MG/DL (60-99); PHOSPHORUS, SERUM 2.4 MG/DL (2.5-4.5); POTASSIUM, SERUM 3.8 MMOL/L (3.5-5.3); SODIUM, SERUM 135 MMOL/L (135-148)
[2016-10-05 06:23] LABS: INTERNATIONAL NORMAL RATI 2.1 UNITS (-); PROTIME (NOT ORD) 23.2 SEC (12.0-14.5)
[2016-10-05 06:25] LABS: BASOPHILS 0.5 %; BASOPHILS ABSOLUTE 0.05 10/3/uL (0.0-0.16); EOSINOPHILS ABSOLUTE 0.31 10/3/uL (0.0-0.53); HEMATOCRIT 33.2 % (36.0-48.0); HEMOGLOBIN 10.9 g/dL (12.0-16.0); LYMPHOCYTES 7.3 %; LYMPHOCYTES ABSOLUTE 0.76 10/3/uL (0.67-4.30); MEAN CORPUS HGB CONC 32.8 g/dL (32.0-36.0); MEAN CORPUSCULAR HEMOGLOB 27.5 pg (26.0-34.0); MEAN CORPUSCULAR VOLUME 83.8 fL (80-100); MEAN PLATELET VOLUME 8.8 fL (9.2-13.0); MONOCYTES 7.8 %; MONOCYTES ABSOLUTE 0.81 10/3/uL (0.21-1.20); NEUTROPHILS 80.4 %; NEUTROPHILS ABSOLUTE 8.35 10/3/uL (2.02-8.40); PLATELET COUNT 280 10/3/uL (150-400); RBC DISTRIBUTION WIDTH 16.9 % (12.0-16.0); RED CELL COUNT 3.96 10/6/uL (4.0-5.6); WHITE BLOOD CELLS 10.4 10/3/uL (4.5-10.5)
[2016-10-05 06:27] LABS: MANUAL DIFF NO %
[2016-11-19] MEDS ORDERED: CIP5 PO (15:08)
[2016-11-19] MEDS ORDERED: DSS PO (15:10)
[2016-11-19] MEDS ORDERED: VITC500 PO (15:11)
[2016-11-19] MEDS ORDERED: FERROUS SULFATE PO (15:11)
[2017-01-18] MEDS ORDERED: PROZ10 PO (17:59)
[2017-01-19] MEDS ORDERED: LIPITOR40 PO (16:05)
== END 2016-10-05 18:13 | DRG 480 ==
LOC: ER 21:18 → 1SO 09-30 00:18
PROVIDERS: Internal Medicine Nephrology; Registered Nurse; Specialist
PROC: 0QS604Z Reposition Right Upper Femur with Internal Fixation Device, Open Approach (ICD-10-PCS; principal; 2016-09-30 18:30)
DX: S72.141A Displaced intertrochanteric fracture of right femur, initial encounter for closed fracture (principal); N18.6 End stage renal disease; I12.0 Hypertensive chronic kidney disease with stage 5 chronic kidney disease or end stage renal disease; E11.22 Type 2 diabetes mellitus with diabetic chronic kidney disease; B18.1 Chronic viral hepatitis B without delta-agent; I25.10 Atherosclerotic heart disease of native coronary artery without angina pectoris; K21.9 Gastro-esophageal reflux disease without esophagitis; W01.0XXA Fall on same level from slipping, tripping and stumbling without subsequent striking against object, initial encounter; E78.5 Hyperlipidemia, unspecified; J44.9 Chronic obstructive pulmonary disease, unspecified; E11.42 Type 2 diabetes mellitus with diabetic polyneuropathy; S01.01XA Laceration without foreign body of scalp, initial encounter; Z99.2 Dependence on renal dialysis; Y92.9 Unspecified place or not applicable; Z98.890 Other specified postprocedural states; Z95.1 Presence of aortocoronary bypass graft; Z88.8 Allergy status to other drugs, medicaments and biological substances; Z88.5 Allergy status to narcotic agent; I25.2 Old myocardial infarction; Y93.9 Activity, unspecified; Y92.122 Bedroom in nursing home as the place of occurrence of the external cause; Z79.4 Long term (current) use of insulin; Z86.73 Personal history of transient ischemic attack (TIA), and cerebral infarction without residual deficits
CPT/HCPCS: 36415; 70450; 71010; 72170; 73502-RT; 76000; 80048; 80069; 81001; 82962; 83735; 84484; 85014; 85018; 85025; 85610; 85730; 86850; 86900; 86901; 86920; 87040; 90471; 90714; 94640; 96374; 96375; 97110-GO; 97110-GP; 97162-GP; 97166-GO; 97530-GP; 99285; A9270-GY; C1713; G0257; J0690; J0885; J1170; J2405; J3010; P9016; P9047

== ENCOUNTER 2016-11-26 07:11 | Day surgery (SDC) | payer OTHER ==
[2016-11-24 14:56] LABS: HEMATOCRIT 40.4 % (36.0-48.0); HEMOGLOBIN 13.2 g/dL (12.0-16.0)
--- NOTE | ~2016-11-26 | OP ---
Record Of Operation [facility] [address] [place]. [address] NAME: BASILIA BAÑUELOS : 45 STATUS : [facility]#: [id number] AGE: 71 ADM/REG DATE : 11/26/16 MR#: [id number] REPORT SERV DATE: 11/29/16 DICTATED BY: DAMEON MARTINEZ DATE: 11/29/16 REPORT STATUS : Draft TRANSCRIBED BY: MODMarion DATE: 11/29/16 DATE OF PROCEDURE: 11/26/2016 PREOPERATIVE DIAGNOSIS: End-stage renal disease. POSTOPERATIVE DIAGNOSIS: End-stage renal disease. PROCEDURE: Left radiocephalic AV fistula. SURGEON: Dameon Martinez M.D. DIGITAL PRODUCT SPECIALIST: Adi Denise. ANESTHESIA: Block. INDICATIONS: The patient is a 71-year-old female with a past medical history significant for renal failure, who needs longer term dialysis access. I talked to her about the risks, benefits, and alternatives of intervention. She agreed to proceed. DESCRIPTION OF PROCEDURE: Informed consent was obtained, the patient was taken to the operating room and placed in the supine position on the operating table. A block had previously been administered. I began with an ultrasound examination of the left upper extremity and found that the cephalic vein in the forearm was at least 3 mm in diameter within its course of in the forearm. In the arm, there was a short segment stenosis, but there was also outflow via the basilic vein. At the level of the wrist, the radial artery measured 3 mm. The cephalic vein measured 3.9 mm. Thus, I decided to perform the radiocephalic fistula. The left upper extremity was prepped and draped in the usual sterile fashion. A longitudinal skin incision was made along the wrist. Cautery was used to deepen the incision. I dissected out the radial artery as well as the cephalic vein. I ligated and divided the cephalic vein distally after marking it for orientation. I mobilized the vein. I controlled the radial artery after systemic heparinization. I created a longitudinal arteriotomy, onto which I sewed the end of the cephalic vein. I flushed of air and debris before tying down the sutures. I achieved hemostasis. There was a little bit of redundancy within the fistula that caused the fistula to kink. I clipped a branch of the fistula and mobilized it more proximally. The fistula appeared to rest well at this point. Thus, I washed out the wound, achieved hemostasis, and closed the wound in layers. The patient's thrill was apparent through the skin. The hand did not appear ischemic. TOMEKA/FIDE Dameon Martinez M.D. / [id number] Record Of [address] [address] NAME: BASILIA BAÑUELOS : 45 STATUS : [facility] PAT#: [id number] AGE: 71 ADM/REG DATE : 11/26/16 MR#: [id number] REPORT SERV DATE: 11/29/16 DICTATED BY: DAMEON MARTINEZ DATE: 11/29/16 REPORT STATUS : Draft TRANSCRIBED BY: FIDE DATE: 11/29/16 CC: Salma Mercado M.D.
[~2016-11-26 07:11] MED LIST changes: +APRES50 PO; +CIP5 PO; +COREG12 PO; +DSS PO; +DULERA 200 MCG/13 GM INH; +FERROUS SULFATE PO; +HALF81 PO; +HUMALOG; +LEVAQUIN5T PO; +LEVEMIR SC; +MCZ25 PO; +NOVOPEN SC; +PLAVIX PO; +ULTRAM50 PO; +VENTOLIN HFA INH; +VITC500 PO
[2016-11-26 07:53] LABS: BUN (BLOOD UREA NITROGEN) 22 MG/DL (6-23); CALCIUM, SERUM 9.4 MG/DL (8.5-10.4); CHLORIDE, SERUM 103 MMOL/L (96-112); CO2 (CARBON DIOXIDE) 26 MMOL/L (24-34); CREATININE 2.38 MG/DL (0.55-1.02); GFR AFRICAN AMERICAN 23 ML/MIN (>=60); GFR NON AFRICAN AMERICAN 20 ML/MIN (>=60); GLUCOSE, SERUM 73 MG/DL (60-99); SODIUM, SERUM 139 MMOL/L (135-148)
[2017-01-18] MEDS ORDERED: PROZ10 PO (17:59)
[2017-01-19] MEDS ORDERED: LIPITOR40 PO (16:05)
== END 2016-11-26 18:57 | disposition home or self-care (01) ==
LOC: SDC 07:11
PROVIDERS: Surgery
PROC: 031C0ZF Bypass Left Radial Artery to Lower Arm Vein, Open Approach (ICD-10-PCS; principal; 2016-11-26 08:45)
DX: I12.0 Hypertensive chronic kidney disease with stage 5 chronic kidney disease or end stage renal disease (principal); E11.22 Type 2 diabetes mellitus with diabetic chronic kidney disease; N18.6 End stage renal disease; I73.9 Peripheral vascular disease, unspecified; K21.9 Gastro-esophageal reflux disease without esophagitis; E78.5 Hyperlipidemia, unspecified; J44.9 Chronic obstructive pulmonary disease, unspecified; I25.10 Atherosclerotic heart disease of native coronary artery without angina pectoris; Z99.2 Dependence on renal dialysis; I25.2 Old myocardial infarction; Z88.8 Allergy status to other drugs, medicaments and biological substances; Z90.710 Acquired absence of both cervix and uterus; Z95.5 Presence of coronary angioplasty implant and graft; Z87.891 Personal history of nicotine dependence; Z88.5 Allergy status to narcotic agent
CPT/HCPCS: 80048; 82962; 85014; 85018; 93005; A9270-GY; J0690; J1170; J2250; J2405; J2795; J3010